=== PATIENT | female | born 1990 | race Caucasian/White ===

== ENCOUNTER 2024-09-05 12:42 | Emergency (ER) | payer OTHER, SELFPAY ==
[2024-09-05 12:49] VITALS: BP 156/98; PULSE 102; TEMP 36.4; O2SAT 99; BMI 35.4
--- NOTE | 2024-09-05 12:58 | ED_ITS ---
HPI HPI - General Adult General Chief complaint: Back Pain/Injury Stated complaint: KIDNEY PAIN Time Seen by Provider: 09/05/24 12:46 History of Present Illness HPI narrative: Pt developed left lower back pain around 08/24/24 and the pain has persisted since onset. She describes the pain as wrapping around to the lateral left hip and thigh and into the left lower abdomen. Long history of sciatica , which can sometimes feel like this, she told me, but this feels different . She denied any urinary changes. no GI symptoms. No fever or chills. The mother interrupted to tell me several other family members had UTIs in the last month . She is currently on her menstrual period and told me there is no way when I asked about . Related Data Previous Rx's ?Medication ?Instructions ?Recorded ciprofloxacin HCl 500 mg tablet 500 mg PO BID #10 tabs 09/05/24 (Cipro) ketorolac 10 mg tablet 10 mg PO Q8H 5 days #15 tabs 09/05/24 Allergies Allergy/AdvReac Type Severity Reaction Status Date / Time Penicillins Allergy Severe Hives Verified 09/05/24 12:48 Opioid HPI Opioid Management Most Recent Opioid Data: Last Pain Scale 4 09/05/24 13:11 09/05/24 Last MAR Pain Assessment 09/05/24 13:04 PFSH PFSH Social History Little interest or pleasure in doing things: not at all Feeling down, depressed, or hopeless: not at all Exam Narrative Exam Narrative: Nurses notes and vital signs reviewed and patient is not hypoxic. afebrile General: Well-appearing and in no apparent distress. Skin: Warm, dry, no pallor noted. No rash to back or abdomen. Eye: Pupils are equal, round and EOMI. No scleral icterus. Cardiovascular: Regular Rate and Rhythm without murmur, gallop or rub. Respiratory: No accessory muscle use or respiratory distress. Lungs are clear to auscultation, no wheezing, rales or rhonchi Chest Wall: no tenderness Back: Left flank soft tissue tenderness. No midline thoracic or lumbar or sacral vertebral tenderness. No CVA tenderness Musculoskeletal: normal ROM, no calf or popliteal tenderness, no lower extremity edema/swelling GI: Abdomen is soft, non-distended. Normal bowel sounds. No solid or pulsatile masses appreciated. No tenderness to palpation. No rebound, guarding, or rigidity noted. Neurological: A&O x4. No cranial nerve dysfunction observed. No truncal ataxia. Moves all extremities. Sensation intact. Psychiatric: Cooperative and interactive. Normal mood and affect. Constitutional Vital Signs, click to edit/add: Last Vital Signs Temp 97.5 F L 09/05/24 12:49 Pulse 102 H 09/05/24 12:49 Resp 16 09/05/24 12:49 BP 156/98 H 09/05/24 12:49 Pulse Ox 99 09/05/24 12:49 O2 Del Method Room Air 09/05/24 12:49 Course Vital Signs Vital signs: Vital Signs Temperature 97.5 F L 09/05/24 12:49 Pulse Rate 102 H 09/05/24 12:49 Respiratory Rate 16 09/05/24 12:49 Blood Pressure 156/98 H 09/05/24 12:49 Pulse Oximetry 99 09/05/24 12:49 Oxygen Delivery Method Room Air 09/05/24 12:49 Temperature 97.5 F L 09/05/24 12:49 Pulse Rate 102 H 09/05/24 12:49 Respiratory Rate 16 09/05/24 12:49 Blood Pressure 156/98 H 09/05/24 12:49 Pulse Oximetry 99 09/05/24 12:49 Oxygen Delivery Method Room Air 09/05/24 12:49 Medical Decision Making MDM Narrative Medical decision making narrative: Urine obtained and sent for testing. Pt received IM Solumedrol and IM Toradol while we awaited urine result. Urinalysis consistent with acute UTI. Pt already feeling better after ED treatment - she declined offer for CT a/p as risk outweighed benefit. Pt prescribed cipro to be started tonight and toradol to be started tomorrow as needed for pain. reasons for ED return discussed including inability to urinate and worsening pain or development of fever despite being on the antibiotics. Lab Data Lab results reviewed: Yes I reviewed the patient's lab results Labs: Lab Results 09/05/24 Range/Units 13:03 Urine Color Lt. yellow (YELLOW) Urine Clarity Clear (CLEAR) Urine pH 6.0 (5.0-9.0) Ur Specific [place] >=1.030 A (1.005-1.025) Urine Protein Negative (NEG/TRACE) mg/dL Urine Glucose (UA) Negative (NEGATIVE) mg/dL Urine Ketones Negative (NEGATIVE) mg/dL Urine Occult Blood Large A (NEGATIVE) Urine Nitrite Positive A (NEGATIVE) Urine Bilirubin Negative (NEGATIVE) Urine Urobilinogen 0.2 (0.2-1.0) EU/dL Ur Leukocyte Esterase Small A (NEGATIVE) Urine RBC 5-10 A (0-2) #/HPF Urine WBC 10-20 A (NONE SEEN) #/HPF Ur Squamous Epith Cells Few A (NONE/RARE) #/LPF Urine Crystals None seen (None Seen) #/HPF Urine Bacteria Moderate A (NONE SEEN) #/HPF Urine Casts None seen (NONE SEEN) #/LPF Urine Mucus None seen (NONE SEEN) Ur Culture Indicated? Yes Discharge Plan Discharge Chief Complaint: Back Pain/Injury Clinical Impression: UTI (urinary tract infection), Low back pain Patient Disposition: Home, Self-Care Time of Disposition Decision: 13:55 Prescriptions / Home Meds: New ciprofloxacin HCl [Cipro] 500 mg tablet 500 mg PO BID Qty: 10 0RF ketorolac 10 mg tablet 10 mg PO Q8H 5 Days Qty: 15 0RF Print Language: Spanish Instructions: Urinary Tract Infection in Women (ED), Acute Low Back Pain (ED) Referrals: Physician,Non-Staff, MD [Primary Care Provider] - 1 week
[2024-09-05] MEDS: KETOROLAC TROMETHAMINE 60 MG/2 ML VIAL IM (13:04)
[2024-09-05] MEDS: METHYLPREDNISOLONE SOD SUCC PF 125 MG/2 ML VIAL IM (13:04)
[2024-09-05 13:20] LABS: Bilirubin Urine NEGATIVE (NEGATIVE); Blood Urine LARGE (NEGATIVE); Clarity Urine CLEAR (CLEAR); Color Urine LT. YELLOW (YELLOW); Glucose Urine UA NEGATIVE (NEGATIVE); Ketones Urine NEGATIVE (NEGATIVE); Leukocyte Esterase Urine SMALL (NEGATIVE); Nitrite Urine POSITIVE (NEGATIVE); Protein Urine NEGATIVE (NEG/TRACE); Specific Gravity Urine >=1.030 (1.005-1.025); Urobilinogen Urine 0.2 EU/dL (0.2-1.0)
[2024-09-05 13:21] LABS: Urine Microscopic Indicated YES
[2024-09-05 13:29] LABS: Bacteria Urine MODERATE #/HPF (NONE SEEN); Mucus Urine NONE SEEN (NONE SEEN); Squamous Epithelial Cell Urine FEW #/LPF (NONE/RARE)
[2024-09-05 13:30] LABS: Cast Seen? NONE SEEN #/LPF (NONE SEEN); Crystals Seen? None Seen #/HPF (None Seen); Urine Culture Indicated YES
[2024-09-08 08:26] LABS: BOX Test Reference Lab FIRELANDS
--- NOTE | 2024-09-10 09:59 | PC.NURSE ---
Urine culture completed and reviewed by Ashanti TABARES. patient already placed on cipro and no change in treatment needed.
== END 2024-09-05 14:37 | disposition home or self-care (01) ==
PROVIDERS: Emergency Provider Emergency Medicine
DX: N39.0 Urinary tract infection, site not specified (principal); M54.50 Low back pain, unspecified
CPT/HCPCS: 36415; 81001; 87086; 87150; 87186; 96372; 99284; J1885; J2919

== ENCOUNTER 2025-04-21 14:02 | Outpatient (OUT) | payer OTHER, SELFPAY ==
--- NOTE | 2025-04-21 14:00 | CA_ITS ---
Patient Name: JUAN MIGUEL DAWKINS MR#: [id number] : 1990 Exam Date: 04/21/2025 Ordering Doctor: DR. BRE STUART M.D. ECHOCARDIOGRAM REPORT PROCEDURE: CA ECHO DOPPLER COMPLETE INDICATIONS: Dizziness, near syncope, dyspnea on exertion COMPARISON: None. DESCRIPTION: COMPLETE ECHOCARDIOGRAM Real-time transthoracic echocardiography with 2D, M-mode, spectral and color flow Doppler performed. QUALITY: Technical quality was good. LEFT VENTRICLE: Normal chamber size. Normal left ventricular wall thickness. Global left ventricular systolic function is normal. LV EF: Estimated left ventricular ejection fraction is 60-65%. DIASTOLIC: Normal diastolic function. ATRIAL SEPTUM: LEFT ATRIUM: Normal chamber size. RIGHT ATRIUM: Normal chamber size. RIGHT VENTRICLE: Normal chamber size. Normal right ventricular systolic function. TRICUSPID VALVE: Normal mobility and thickness. No stenosis with trivial regurgitation. No evidence of pulmonary hypertension. Unable to calculate RVSP due to lack of measurable regurgitation. MITRAL VALVE: Normal mobility and thickness. No evidence of mitral valve stenosis. There is no mitral annular calcification. No mitral regurgitation. AORTIC VALVE: Normal trileaflet appearance. No visible sclerosis. Normal leaflet mobility. No evidence of aortic valve stenosis. No aortic regurgitation. AORTIC ROOT: Normal diameter and appearance, measuring 2.8 cm. The ascending aorta is normal in size measuring 2.6 cm. PULMONIC VALVE: Normal thickness and mobility. No stenosis. Trivial regurgitation. PERICARDIUM: No evidence of pericardial effusion. IVC: Collapses with inspiration. Normal size. PLEURA: CONCLUSION: 1. Normal ventricular size and systolic function. Estimated LVEF is 60-65%. 2. Normal diastolic function. 3. No significant valvular dysfunction. 4. Unable to assess right-sided pressures due to lack of measurable tricuspid regurgitation. Adult Echocardiography Procedure Report Left Ventricle LVEDD (3.7 - 5.6 cm): 4.82 cm LVESD (2.2 - 4.0 cm): 3.04 cm LVIVS thickness (0.6 - 1.2 cm): 0.92 cm LVPW thickness (0.5 - 1.0 cm): 0.88 cm e': 0.15 m/s E - e': 3.59 LVOT Max Gradient: 3.51 mm[Hg] LVOT Area (cm2): 0.94 m/s Peak Velocity (LVOT): 0.94 m/s Mean Velocity (LVOT): 0.67 m/s LVOT Diameter 2.21 cm Left Ventricular Ejection Fraction: 60-65 % Left Atrium LA Volume Index (2D A2C): 25.16 ml/m2 Left Atrium Systolic Dimension: 3.83 cm Mitral Valve MV E to A Ratio: 1.21 Mitral Valve A-Wave Peak Velocity: 0.45 m/s Mitral Valve E-Wave Peak Velocity: 0.55 m/s Right Ventricle RV Internal Diastolic Dimension: 3.62 cm Aorta AO Root Diam: 2.80 cm Ascending Ao Diam: 2.55 cm Aortic Valve AoV Area (Peak Bear): 2.89 cm2, 2.89 cm2 AoV Area (VTI): 2.95 cm2, 2.95 cm2 Peak Velocity(Antegrade Flow): 1.24 m/s Peak Gradient(Antegrade Flow): 6.20 mm[Hg] Mean Velocity(Antegrade Flow): 0.85 m/s Mean Gradient(Antegrade Flow): 3.34 mm[Hg] Velocity Time Integral: 23.63 cm Tricuspid Valve Pulmonic Valve Mean Gradient: 2.16 mm[Hg], 2.02 mm[Hg] Mean Velocity: 0.68 m/s, 0.65 m/s Peak Velocity: 0.91 m/s Peak Gradient: 3.46 mm[Hg], 3.20 mm[Hg] Right Atrium Right Atrium Systolic Pressure: 69.08 ml, 69.08 ml Dictated by: Murali Boyd M.D. on 04/21/2025 at 18:09 Approved by: Murali Boyd M.D. on 04/21/2025 at 18:12
--- OUTSIDE RECORDS SUMMARY | 2025-04-21 14:12 | XMS_ITS | CCD ---
Author Organization [facility] Care Team Providers Care Cash Person Name Role Phone Anna Anthony Primary Care Physician Ana Tobin Attending Unavailable Ana Tobin Admitting Unavailable Roger Davis MD Attending Provider Roger Davis Attending Unavailable Roger Davis Admitting Unavailable Ana Tobin Referring Unavailable Ana Tobin Attending Unavailable Ana Tobin Admitting Unavailable BRE STUART Attending Unavailable Allergies Allergy Classification Reported Allergen(s) Allergy Type Date of Onset Reaction(s) Facility (1 source) Penicillins; Translations: [PENICILLINS] Propensity to adverse reactions to drug (disorder) [facility] Repository Problems Problem Classification Problem Date Documented Da te Episodic/Chronic Cardiac dysrhythmias (2 sources) Palpitations; Translations: [Palpitations] Onset: 03-31-2025 Episodic Conditions associated with dizziness or vertigo (2 sources) Dizziness and giddiness; Translations: [Dizziness and giddiness] Onset: 03-31-2025 Episodic Other ear and sense organ disorders (2 sources) Tinnitus, bilateral; Translations: [Tinnitus, bilateral] Onset: 03-31-2025 Episodic Other lower respiratory disease (2 sources) Other forms of dyspnea; Translations: [Other forms of dyspnea] Onset: 03-31-2025 Episodic Syncope (2 sources) Syncope and collapse; Translations: [Syncope and collapse] Onset: 03-31-2025 Episodic Results Test Name Value Interpretation Reference Range Facil ity 36on 04-19-2025 36 Regarding serious report on event monitor on 04/03/2025: MD Chuyita Almanza MA Can you please check with the patient if she recalls that what she was doing at that time and if she had symptoms. Thank you Spoke with patient. She said she thinks she was either walking into the library at that time, or playing a board game at the library. Currently has 11 more days left to wear event monitor. Normal [facility] Office Visiton 03-31-2025 Follow-up visit [id number] Juan Miguel Webber 1990 F Date Provider Department Center 03/31/2025 BRE [facility] Family History Problem Relation Age of Onset Thyroid disease Mother Heart disease Mother Obesity Mother Hyperlipidemia Mother Other Father Family Status - Relation Status Age at Mother Alive Father Unknown Level of Service:89799 [facility] OFFICE/OUTPATIENT NEW MODERATE MDM 45 MINUTES Reason for Visit and Comments: Hypertension [894049] New Patient [632] Normal [facility] MA Mamm Diag w/CAD if perf a nd 3D Bilon 03-10-2025 MA Mamm Diag w/CAD if perf and 3D Justin Exam Date/Time: 03/10/2025 13:31 EDT Reason for Exam: N64.9 Disorder of breast, unspecified Report IMPRESSION: BIRADS 1 NEGATIVE, NORMAL INTERVAL FOLLOW-UP.NO FOLLOWUP NEEDED. FOLLOW BASED ON AGE CRITERIA OR CLINICAL FINDINGS IS RECOMMENDED. CLINICAL HISTORY: N64.9 Disorder of breast, unspecified. COMPARISON: None. COMMENT: Tomosynthesis views of both breasts were obtained. There are scattered areas of fibroglandular density. A marker was placed on the skin surface of the lateral right breast to indicate where the patient feels a lump. No mammographic abnormality is identified in proximity to the skin marker. No dominant breast mass nor neoplastic calcifications are identified in either breast. This is a baseline exam. The examination was reviewed with Computer Aided Detection. An ultrasound was obtained at all clock face positions and in the central/ retroareolar region of the right breast. No mass, no cyst, nor suspicious lesion is noted in the right breast. No ultrasound abnormality is noted at 9:00 where the patient feels a lump. Breast Density: No Mammography is very important to your health. The current [employer] and National [employer] Network guidelines recommends annual mammography beginning at age 40. This facility utilizes a reminder system to ensure all patients receive reminder notifications at the appropriate time based on the recommendations of this exam. Board Certified Radiologists. Accredited by the ACR and FDA. Ordering Provider: Ana Tobin FINAL REPORT Dictated: 03/10/2025 2:35 pm Lionel Hunter M.D. Signed (Electronic Signature): 03/10/2025 2:35 pm Signed by: Lionel Hunter M.D. Transcribed by: ANAHY Technologist: SOLOMON Assessment: BI-RADS Category 1-Negative Recommendation: Normal interval follow-up Normal [facility] US Breast Unilateral Rt Comp leteon 03-10-2025 US Breast Unilateral Rt Complete Exam Date/Time: 03/10/2025 13:59 EDT Reason for Exam: N64.9 Disorder of breast, unspecified Report PLEASE REFER TO THE MAMMOGRAM REPORT. Ordering Provider: Ana Tobin FINAL REPORT Dictated: 03/10/2025 2:35 pm Lionel Hunter M.D. Signed (Electronic Signature): 03/10/2025 2:35 pm Signed by: Lionel Hunter M.D. Transcribed by: ANAHY Technologist: CHRISTIANO Normal [facility] Urine Cultureon 09-05-2024 Bacteria identified Cx Nom (U) ORGANISM: Escherichia coli (O:ESCCOL) [place] Count >100,000 Aerobic DELMAR Charge ([id number]) --- SUSCEPTIBILITY -- ORGANISM: O:ESCCOL ANTIBIOTIC INTERPRETATION DELMAR Amikacin S <16 Amoxacillin/K Clavulanate S <8 Ampicillin R >16 Ampicillin/Sulbactam S <4 Aztreonam S <4 Cefazolin S <2 Cefepime S <2 Ceftazidime S <1 Ceftazidime/Avibactam S <4 Ceftolozane/Tazobactam S <2 Ceftriaxone S <1 Cefuroxime S <4 Ciprofloxacin S <0.25 Ertapenem S <0.5 Gentamicin S <2 Levofloxacin S <0.5 Meropenem S <1 Meropenem/Vaborbactam S <2 Nitrofurantoin S <32 Piperacillin/Tazobacta m S <8 Tetracycline S <4 Tigecycline S <2 Tobramycin S <2 Trimethoprim/Sulfameth oxazole S <0.5 S = SUSCEPTIBLE I = INTERMEDIATE R = RESISTANT BLANK = DATA NOT AVAILABLE, OR DRUG NOT ADVISABLE OR TESTED R* = RESISTANCE DUE TO EXTENDED SPECTRUM BETA-LACTAMASES ESBL = EXTENDED SPECTRUM BETA-LACTAMASE TFG = THYMIDINE-DEPENDENT STRAIN CNOSUELO = BETA-LACTAMASE POSITIVE IB = INDUCIBLE BETA-LACTAMASE. APPEARS IN PLACE OF 'S' WITH SPECIES KNOWN TO POSSESS INDUCIBLE BETA-LACTAMASES. POTENTIALLY THEY MAY BECOME RESISTANT TO ALL B-LACTAM DRUGS. PERFORMED BY: [place] [address] PATHOLOGIST CONSUMER RECRUITER GIOVANNI CONTRERAS M.D. Normal [facility] Comment on above: Performed By: #### C UU #### [place] [id number] [facility] Physician Orderon 02-20-2024 Physician Order [id number] Normal [facility] Encounters Encounter Date Encounter Type Care Provider Facility Start: 03-31-2025 End: 03-31-2025 ambulatory [facility] Start: 03-10-2025 End: 03-10-2025 ambulatory Ana Tobin [place] [place]: 09-05-2024 End: 09-05-2024 ambulatory Roger Davis [facility] Work Phone: Start: 09-05-2024 End: 09-05-2024 Departed Referred Roger Davis MD Work Phone: [facility] Start: 02-20-2024 End: 02-20-2024 ambulatory Ana Tobin [place] Start: 02-20-2024 End: 02-20-2024 Lab Drop off Ana Tobin [facility] Plan of Treatment Date Care Activity Detail Author Start: 09-05-2024 Bacteria identified in Urine by Culture Urine Culture [facility] Start: 09-05-[address] [facility] Payers Date Payer Category Payer Self-pay [id number] 2021 Unknown [id number] 1990 Unknown [id number] 1990 Unknown [id number] Unknown [id number] Social History Date Type Detail Facility Tobacco smoking status No Smokin g Status Entered [facility] Sex Assigned At Female [facility] Tobacco smoking stat [facility] Unknown if ever smoked [facility] Work Phone: Start: 09-06-2024 Sex Female (finding) [facility] Start: 1990 Sex Assigned At Female F [facility] Progress note 03-31-2025 Note Date & Type Note Facility 03-31-2025 Note [facility] Note Reason for cardiology consult: Dizziness, palpitations, shortness of breath on exertion Chief Complaint: Dizziness and palpitation HPI: Juan Miguel Webber is a 34 y.o. female with history of ADHD, anxiety depression, palpitation and tachycardia, hypertension, and obesity Patient states that she had dizziness episodes for a long time however it is worse over the last couple years. She states that the dizziness happens when she gets up too fast or for examples when she rushes from outside into her house or into a grocery store when she feels pressure on the top of her head with kolb vision and lightheadedness and she feels that things are spinning. She states that she never fainted. She feels that she has to sit down or hold to something and if she hold to something she feels better even if she is still standing. Also she feels at the time that her heart is pounding. She was told that her heart rate was fast and blood pressure elevated therefore she was started on small dose of beta-mihai Toprol-XL 25 mg daily which did not change the above symptoms and actually it makes her feel dizziness she describes it as floating even if she is sitting down. She told me that today when the nurse did her orthostatic vitals she did not feel any symptoms till after she is done when she was going to sit down when she felt slightly light headed. She reports that she always attributed the symptoms to anxiety. She reports also that she does not do any exercises except for yoga because of those symptoms. She reports that she has bad tinnitus for a long time and she feels pressures in her ears. She never seen ENT. She feels that her heart is racing at times that she has hard heartbeats. She reports that she has kind of fast heart rate all of her life. She reports also exertional dyspnea. She reports occasional stabbing chest pain at rest for few seconds but no chest pain with exertion. She denies orthopnea or paroxysmal nocturnal dyspnea or legs edema. She reports snoring and being tired and exhausted during the daytime. She never been told that she stops breathing during the night and she never been evaluated for sleep apnea She has history of anxiety and also ADHD but she has been on medication only for 1 and half year. Her symptoms are much older. She reports drinking 2 Cokes a day and rarely she drinks energy drink, both caffeine and energy drinks makes her sleepy. And she drinks about 3 bottles of 20 ounce water a day. She denies any alcohol or illicit drugs. Cardiology ROS: GENERAL: Denies fever, chills, night sweats, weight loss. HEENT: Denies changes in vision, photophobia, changes in hearing, epistaxis, oral bleeding. CARDIOVASCULAR: As described above in the history GI: Denies abdominal pain, nausea/vomiting, heartburn, melena/hematochezia. RENAL: Denies dysuria, hematuria, flank pain. MSK: Denies muscle weakness/pain, arthralgias/joint pain. NEUROLOGIC: Denies LOC, weakness, numbness, headaches. SKIN: Denies abnormal rashes or bleeding. PSYCH: Denies significant anxiety, depression, sleep disturbances. Past Medical History She has a past medical history of ADHD, Anxiety, Depression, Eczema, Palpitation, and Tachycardia. Surgical History She has no past surgical history on file. Social History She reports that she has never smoked. She has never used smokeless tobacco. She reports that she does not currently use alcohol. She reports that she does not use drugs. Family History Family History[1] Allergies Penicillins Medications Current Medications[2] Last Recorded Vitals Visit Vitals BP 140/90 (BP Location: Left arm, Patient Position: Lying) Pulse 85 Ht 1.727 m (5' 8 ) Wt 114 kg (252 lb) SpO2 97% BMI 38.32 kg/m??? Smoking Status Never BSA 2.34 m??? Physical Examination: GENERAL: alert and oriented x3, well developed, in no acute distress. HEAD: atraumatic, normocephalic. EYES: LINK, EOMI. NECK: trachea midline, no JVD present, no carotid bruits present. CARDIAC: S1, S2 present. RRR. No murmur, rubs, or gallops. RESPIRATORY: CTAB, no increased effort of breathing, no rales, rhonchi, or wheezing. ABDOMEN: soft, nontender, nondistended. EXTREMITIES: no lower extremity edema, peripheral pulses are 2+ bilaterally. No rash/skin discoloration present. NEURO: strength/sensation equal and symmetric in bilateral upper and lower extremities. PSYCH: appropriate mood, affect, and judgement. Labs: 02/16/2025 Cholesterol 197, HDL 50, triglyceride 138, LDL 121, Glucose 107, BUN 10, creatinine 0.83, GFR 94, sodium 140, potassium 4.2, calcium 9.1 Total protein 6.5, albumin 4.3, total bilirubin 0.4, alk phos 63, AST 25, ALT 27 White blood count 7.3, hemoglobin 13.4, hematocrit 42, platelets 223 TSH 0.98 Last Images: EKG today 03/31/2025 showed normal sinus rhythm, heart rate 84 bpm, normal EKG Assessment and Pl (more content not included)... [facility] Evaluation + Plan note Note Date & Type Note Facility Evaluation + Plan note No data available for this section [facility] Evaluation note Note Date & Type Note Facility Evaluation note No assessment information availa [facility] Work Phone: Hospital Discharge instructions Note Date & Type Note Facility Hospital Discharge instructions No data available for this section [facility] Progress note Note Date & Type Note Facility Progress note No data available for this section [facility] Summary Purpose Family History No Family History Records Found Advance Directives No Advanced Directives Records FoundNo Advanced Directives Records FoundNo Advanced Directives Records FoundNo Advanced Directives Records Found Additional Source Comments Patient Care team informatio n (unrecognized section and content) Team Status: Inactive Member Role Status Dates Roger Davis MD Attending Provider Active Sta rt: September 05, 2024 End: September 05, 2024 INFORMATION SOURCE (unrecogn ized section and content) DATE CREATED AUTHOR 02/22/2024 [facility] DATE CREATED AUTHOR AUTHOR'S ORGANIZ ATION 09/12/2024 [facility] DATE CREATED AUTHOR AUTHOR'S ORGANIZ ATION 03/22/2025 [facility] DATE CREATED AUTHOR AUTHOR'S ORGANIZ ATION 04/20/2025 [facility] Goals (unrecognized section and content) Goals may be documented in a n alternate section FOR RECORDS PERTAINING TO PATIENTS WHO ARE OR HAVE BEEN ENROLLED IN A CHEMICAL DEPENDENCY/SUBSTANCEABUSE PROGRAM, SOME INFORMATION MAY BE OMITTED. This clinical summary was aggregated from multiple sources. Caution should be exercised in using it in the provision of clinical care. This summary normalizes information from multiple sources, and as a consequence, information in this document may materially change the coding, format and clinical context of patient data. In addition, data may be omitted in some cases. CLINICAL DECISIONS SHOULD BE BASED ON THE PRIMARY CLINICAL RECORDS. [facility] [email or web address] [facility]. provides no warranty or guarantee of the accuracy or completeness of information in this document.
== END 2025-04-21 14:03 | disposition home or self-care (01) ==
LOC: CARD 14:02
PROVIDERS: Visit Provider Internal Medicine Cardiovascular Disease
DX: R42 Dizziness and giddiness (principal); R55 Syncope and collapse; R06.09 Other forms of dyspnea
CPT/HCPCS: 93306

== ENCOUNTER 2025-07-06 15:59 | Outpatient (OUT) | payer OTHER, SELFPAY ==
--- OUTSIDE RECORDS SUMMARY | 2025-06-23 13:40 | XMS_ITS | Encounter Summary ---
Author Organization [facility] Address [address] [facility] [place] [address] Care Team Providers Care Dehydrogenation Converter Helper Name Role Phone Anna Navarro MD Unavailable [phone] Reason for Referral * Imaging (Routine) - AuthorizedSpecialtyDiagnoses / ProceduresReferred By ContactReferred To ContactRadiology Diagnoses Pharyngoesophageal dysphagia Procedures FL esophagus barium swallow Thu Whalen MD [address] [facility] [address] [place] [address] Phone: tel: fax: [place] [facility] [address] [place] [address] Phone: tel: fax: Referral IDStatusReasonStart DateExpiration DateVisits RequestedVisits [id number] Perform Procedure / Reason for Visit * ReasonCommentsTinnitusAudio 06/15/25 Encounter Details DateTypeDepartmentCare Team (Latest Contact Info)Phcgrorobsl30/22/2025 2:40 PM EDTOffice Visit [facility] [address] [place] [address] [place] [address] Thu Whalen MD [address] [facility] [address] [place] [address] Dizziness and giddiness (Primary Dx); Pharyngoesophageal dysphagia Social History Tobacco UseTypesPacks/DayYears UsedDateSmoking Tobacco: NeverSmokeless Tobacco: Never Tobacco Cessation:Counseling Given: Not Answered CommentsUnknownSex and Gender InformationValueDate RecordedSex Assigned at BirthNot on fileLegal NhnVsotpa23/01/2023 8:35 PM EDTGender IdentityNot on fileSexual OrientationNot on filedocumented as of this encounter Last Filed Vital Signs Vital SignReadingTime TakenCommentsBlood Nmfbvsqq63/5810 2:38 PM EDT Ewjul350706/23/2025 2:38 PM EDTTemperature--Respiratory Rate--Oxygen Saturation-- Inhaled Oxygen Concentration--Wuitdw898 kg (265 lb)06/23/2025 2:38 PM EDTHeight 172.7 [...] appears well-developed, well-nourished and well-groomed, Constitutional comments: [place]-Hallpike normal Head and Face Appearance: head appears [...] c/w orthostasis, but I would think the administrative services coordinator who referred her would have ruled that [...] Plan of Treatment DateTypeDepartmentCare Team (Latest Contact Info)Izajiosxnha45/03/2025 2:20 PM ESTOffice Visit [facility] [address] [facility] [address] [place] [address] Thu Whalen MD [address] [facility] [address] [place] [address] NameTypePriorityAssociated DiagnosesOrder ScheduleFL esophagus barium swallow ImagingRoutine Pharyngoesophageal dysphagia Expected: 06/28/2025, Expires: 06/28/2026documented as of this encounter Visit Diagnoses Diagnosis Dizziness and giddiness- Primary Pharyngoesophageal dysphagia Dysphagia, pharyngoesophageal phase documented in this encounter Care Teams Team MemberRelationshipSpecialtyStart DateEnd Date Anna Navarro MD [address] [place], [place] [address], [place] [address] Referring PhysicianFamily Snblktak90/22/25documented as of this encounter
--- OUTSIDE RECORDS SUMMARY | 2025-07-06 15:00 | XMS_ITS | Encounter Summary ---
Author Organization [facility] Address [address] [facility] [place] [address] Care Team Providers Care Transfusion Aide Name Role Phone Unavailable Primary Care Provider Unavailabl e Reason for Referral * Genetic Testing (Routine) - Pending ReviewSpecialtyDiagnoses / Procedures Referred By ContactReferred To ContactLab Diagnoses Palpitations Procedures T4, free Josr Concepcion MD [address] [place] [address] Phone: tel: fax: Referral IDStatusReasonStart DateExpiration DateVisits RequestedVisits [id number]/ Reason for Visit * ReasonCommentsFollow-upPatient is here today for a follow up per Dr. Kruse request.Patient recently wore 30 day montior.Patient denies chest pain,Near syncopeSVTHypertensionHyperlipidemiaPalpitationsPalpation/racing heart has decreased since starting matoprololDizzinessDizziness/lightheaded happens frequently with standing/position changesFatigueTired all the time Encounter Details DateTypeDepartmentCare Team (Latest Contact Info)Jimvtwatqms21/04/2025 3:00 PM ESTOffice Visit [facility] [address] [place] [address] Josr Concepcion MD [address] [place] [address] Palpitations (Primary Dx) Social History Tobacco UseTypesPacks/DayYears UsedDateSmoking Tobacco: NeverSmokeless Tobacco: NeverAlcohol UseStandard Drinks/WeekCommentsNot Currently0 (1 standard drink = 0.6 oz pure alcohol)CommentsUnknownSex and Gender InformationValueDate RecordedSex Assigned at YmregYxcson24/30/2025 9:28 AM EDTLegal SexFemale 03/04/2025 11:19 AM EDTGender SvmborasSrbhok08/30/2025 9:28 AM EDTSexual OrientationHeterosexual or Tuiievof58/30/2025 9:28 AM EDTdocumented as of this encounter Last Filed Vital Signs Vital SignReadingTime TakenCommentsBlood Evcajpkj315/ 2:58 PM EST Ufpxv202607/06/2025 2:58 PM ESTTemperature--Respiratory Rate--Oxygen Wsgesmdrhq65% 07/06/2025 2:58 PM ESTInhaled Oxygen Concentration--Weight--Wjadik226.7 cm (5' 8 )07/06/2025 2:58 PM ESTBody Mass Index--documented in this encounter Functional Status * BPAnswerDate of MmvzbhgeejHdowyl664 2:58 PM Delmy Christianson MA * PulseAnswerDate of TzgcpqbmdjNudxhz9516/04/2025 2:58 PM Delmy Christianson MA * Patient PositionAnswerDate of FrlhohsqgoEbhnjbJqmeiuh99/04/2025 2:58 PM Delmy Peters MA * BPAnswerDate of PxspcgaugpBmogyb590 2:58 PM Delmy Christianson MA * PulseAnswerDate of DdnqwdntchCgptoi6959/04/2025 2:58 PM Delmy Christianson MA * AcP8XplshfXxsb of VkausakjbwNnzsnc8207/04/2025 2:58 PM Delmy Christianson MA * BP LocationAnswerDate of AssessmentAuthorRight arm07/06/2025 2:58 PM Delmy Peters MA * Patient PositionAnswerDate of CscbjesmsyCssowmWnjtttt93/04/2025 2:58 PM Delmy Peters MA documented as of this encounter Plan of Treatment NameTypePriorityAssociated DiagnosesOrder ScheduleTSHLabRoutine Palpitations Expected: 07/06/2025 (Approximate), Expires: 07/06/2026T4, freeLabRoutine Palpitations Expected: 07/06/2025 (Approximate), Expires: 07/06/20264996H8AuzHloftpf Palpitations Expected: 07/06/2025 (Approximate), Expires: 07/06/2026documented as of this encounter Visit Diagnoses Diagnosis Palpitations- Primary documented in this encounter
--- OUTSIDE RECORDS SUMMARY | 2025-07-06 16:04 | XMS_ITS | Encounter Summary ---
Author Organization [facility] Address [address] [place] [address] Care Team Providers Care Net Washer Name Role Phone Anna Navarro MD Unavailable [phone] Encounter Details DateTypeDepartmentCare Team (Latest Contact Info)Sleerdhdwbf88/22/2025amboo flowsheet [facility] [address] [facility] [address] [place] [address] Thu Whalen MD [address] [facility] [address] [place] [address] Social History Tobacco UseTypesPacks/DayYears UsedDateSmoking Tobacco: NeverSmokeless Tobacco: NeverCommentsUnknownSex and Gender InformationValueDate RecordedSex Assigned at BirthNot on fileLegal UaiTcjloj14/01/2023 8:35 PM EDTGender Identity Not on fileSexual OrientationNot on filedocumented as of this encounter Plan of Treatment DateTypeDepartmentCare Team (Latest Contact Info)Grfgfrhqeke83/03/2025 2:20 PM ESTOffice Visit [facility] [address] [facility] [address] [place] [address] Thu Whalen MD [address] [facility] [address] [place] [address] documented as of this encounter Visit Diagnoses Not on filedocumented in this encounter Care Teams Team MemberRelationshipSpecialtyStart DateEnd Date Anna Navarro MD [address] [facility] [place] [address] Referring PhysicianFamily Rszjljxa42/22/25documented as of this encounter
--- OUTSIDE RECORDS SUMMARY | 2025-07-06 16:04 | XMS_ITS | Patient Health Record ---
Author Organization [facility] Address [address] [place] [address] Care Team Providers Care Robot Programmer Name Role Phone Dr. Kenan Weston Primary Care Provider Reason For Referral No Information Plan Of Treatment No Information Insurance Providers Payer Name Payer Address Payer Phone Subscriber Number Group Number Insured Name Patient Relationship to Insured Coverage Start Date Coverage End Date zDENTAL NATH-termed [address] [place] [address] [id number] Alexsander DAWKINS - patient is the [id number] 2021[facility] after NATH-termed [address] [place] [id number] REYES - patient is the [id number] 2021
--- OUTSIDE RECORDS SUMMARY | 2025-07-06 16:04 | XMS_ITS | Clinical Summary ---
Author Organization [facility] Address [address] [place] [address] Care Team Providers Care Human Resources Office Manager Name Role Phone Anna Navarro MD Unavailable [phone] Allergies Active AllergyReactionsCriticalityNoted AmtqRkgjmlznXkduuodGinavgd11/18/2025 NgtyviijfPlkfb68/22/8551JajitatojjbNdanuvt79/30/2025 Medications MedicationSigDispense QuantityRefillsLast FilledStart DateEnd DateStatus amphetamine-dextroamphetamine XR (Adderall XR) 15 MG 24 hr capsule Take 15 mg by mouth DailyActive Blisovi 24 Fe 1-20 MG-MCG(24) tablet Take 1 tablet by mouth DailyActive metoprolol succinate XL (Toprol-XL) 25 MG 24 hr tablet Take 25 mg by mouth Daily03/16/2025tive cyclobenzaprine (Flexeril) 10 MG tablet TALE 1 TABLET BY MOUTH EVERY 8 HOURS NEEDED FOR MUSCLE SPASMActive Active Problems ProblemNoted DateDiagnosed DateBenign hypertensive heart disease without congestive heart mfckbln1706/03/2025SVT (supraventricular tachycardia)06/03/2025 Attention deficit hyperactivity disorder (ADHD)03/31/2025lass 2 severe obesity due to excess calories with serious comorbidity and body mass index (BMI) of38.0 to 38.9 in adult03/31/2025DOE (dyspnea on exertion)03/31/2025Near syncope 03/31/20251489Oxtxcyklmvzq50/30/2025Pure kcihgxxqmqnogtwywqfs23/30/2025Sleep apnea 03/31/2025Tinnitus of both ears03/31/20257458Ybitkgb83/30/2025 Encounters DateTypeDepartmentCare BeljBpbqejwmpch79/27/2025Telephone [facility] Otol[facility]ology [address] [place] [phone] Thu Whalen MD 06/23/2025 2:40 PM EDTOffice Visit [facility] [place] [facility] [address] [facility] [address] [place] [address] Thu Whalen MD Dizziness and giddiness (Primary Dx); Pharyngoesophageal yjkpmuzmb47/22/2025amboo flowsheet [facility] [place] [facility] [address] [facility] [address] [place] [address] Thu Whalen MD 06/23/20253219Mwppwo46/14/2025 2:45 PM EDTOffice Visit [facility] [address] [place] [phone] Lidia Luu, AUD Dizziness (Primary Dx)06/15/2025amboo flowsheet [facility] [address] [place] [phone] Lidia Luu, AUD from Last 3 Months Social History Tobacco UseTypesPacks/DayYears UsedDateSmoking Tobacco: NeverSmokeless Tobacco: Never Tobacco Cessation:Counseling Given: Not Answered CommentsUnknownSex and Gender InformationValueDate RecordedSex Assigned at BirthNot on fileLegal ErhMiqdzl33/01/2023 8:35 PM EDTGender IdentityNot on fileSexual OrientationNot on file Last Filed Vital Signs Vital SignReadingTime TakenCommentsBlood Ngjjtsjo88/5810 2:38 PM EDT Vmzuo186506/23/2025 2:38 PM EDTTemperature--Respiratory Rate--Oxygen Saturation-- Inhaled Oxygen Concentration--Qloqxs965 kg (265 lb)06/23/2025 2:38 PM EDTHeight 172.7 cm (5' 8 )06/23/2025 2:38 PM EDTBody Mass Index40.291 2:38 PM EDT Plan of Treatment DateTypeDepartmentCare Team (Latest Contact Info)Aqtfddbndrx86/03/2025 2:20 PM ESTOffice Visit [facility] [place] [facility] [address] [facility] [address] [place] [phone] Thu Whalen MD [address] [facility] [address] [place] [address] Health MaintenanceDue DateLast DoneCommentsMMR Vaccines (1 of 1 - Standard series)1989DTaP/Tdap/Td Vaccines (1 - Tdap)12/07/1995Varicella Vaccines (1 of 2 - 13+ 2-dose series)2001Hepatitis B Vaccines (1 of 3 - 19+ 3-dose series)12/07/2007Pap Smear2009HPV Vaccines (1 - 3-dose SCDM series) 12/07/2015Cervical Cancer Ratanpqjn73/06/2019HPV/Lhyycw7012/06/2018COVID-19 Vaccine ( season)/, 07/30/2021, 12/22/2020, Additional history existsInfluenza Vaccine (#1)05/03/2025HIB VaccinesAged OutNo longer eligible based on patient's age to complete this topicHepatitis A VaccinesAged OutNo longer eligible based on patient's age to complete this topic IPV VaccinesAged OutNo longer eligible based on patient's age to complete this topicMeningococcal B VaccineAged OutNo longer eligible based on patient's age to complete this topicMeningococcal VaccineAged OutNo longer eligible based on patient's age to complete this topicPneumococcal Vaccine: Pediatrics (0 to 5 Years) and At-Risk Patients (6 to 64 Years)Aged OutNo longer eligible based on patient's age to complete this topicRotavirus VaccinesAged OutNo longer eligible based on patient's age to complete this topic Procedures Procedure NamePriorityDate/TimeAssociated DiagnosisCommentsAUDITORY FUNCTION WZZNLWtsrgxa15/14/2025 3:41 PM EDT from Last 3 Months Results * Auditory function tests (06/15/2025 3:41 PM EDT) Narrative Luu, Lidia S, AUD - 06/15/2025 3:41 PM EDT Pure Tone Audiometry Audio indicated normal hearing sensitivity 250-8000 Hz, bilaterally. Hallpike: Yielded negative results in both positions tested. Authorizing ProviderResult TypeResult StatusAllgustabo Luu AUDAUDIOLOGY SERVICES ORDERABLESFinal Result from Last 3 Months Insurance Care Teams Team MemberRelationshipSpecialtyStart DateEnd Date Anna Navarro MD [address] [place] [phone] Referring PhysicianFamily Djdgrneh96/22/25
--- OUTSIDE RECORDS SUMMARY | 2025-07-06 16:04 | XMS_ITS | Encounter Summary ---
Author Organization [facility] Address [address] [place] [address] Care Team Providers Care Psychometrist Name Role Phone Anna Navarro MD Unavailable [phone] Encounter Details DateTypeDepartmentCare Team (Latest Contact Info)Kfgcvnvqvxf05/22/2025Travel Social History Tobacco UseTypesPacks/DayYears UsedDateSmoking Tobacco: NeverSmokeless Tobacco: NeverCommentsUnknownSex and Gender InformationValueDate RecordedSex Assigned at BirthNot on fileLegal OxzMccvpb92/01/2023 8:35 PM EDTGender Identity Not on fileSexual OrientationNot on filedocumented as of this encounter Plan of Treatment DateTypeDepartmentCare Team (Latest Contact Info)Qjzusmyjznd59/03/2025 2:20 PM ESTOffice Visit [facility] [place] [facility] [address] [place] [phone] Thu Whalen MD [address] [place] [address] documented as of this encounter Visit Diagnoses Not on filedocumented in this encounter Care Teams Team MemberRelationshipSpecialtyStart DateEnd Date Anna Navarro MD [address] [place] [phone] Referring PhysicianFamily Gvzfibrn25/22/25documented as of this encounter
--- OUTSIDE RECORDS SUMMARY | 2025-07-06 16:04 | XMS_ITS | Clinical Summary ---
Author Organization [facility] Address [address] [address] Care Team Providers Care Fleet Administrator Name Role Phone Unavailable Primary Care Provider Unavailabl e Allergies Active AllergyReactionsCriticalityNoted BazqFafgynzsNeagkwsBeezwmr26/18/2025 TlufsixwbPuwgf82/22/3446QrjbkdfaaguZjzbxou00/30/2025 Medications MedicationSigDispense QuantityRefillsLast FilledStart DateEnd DateStatus amphetamine-dextroamphetamine XR (Adderall XR) 15 mg 24 hr capsule Take 1 capsule by mouth in the morning.5Active Blisovi 24 Fe 1 mg-20 mcg (24)/75 mg (4) tablet Take 1 tablet by mouth in the morning.5Active cyclobenzaprine (Flexeril) 10 mg tablet Take 10 mg by mouth if needed.5Active metoprolol succinate XL (Toprol-XL) 50 mg 24 hr tablet Indications:Benign hypertensive heart disease without congestive heart failure Take 1 tablet (50 mg) by mouth in the morning. Do not crush or chew. 90 tablet 5005/27/2026ctive Active Problems ProblemNoted DateDiagnosed DateSVT (supraventricular tachycardia)06/03/2025 Benign hypertensive heart disease without congestive heart hktzpih9206/03/2025 Gggcpmi3003/31/2025Near wbqdqcr9303/31/20252554Gaboqsaeuvhn38/30/2025DOE (dyspnea on exertion)03/31/2025Pure vkxdghneroxhofimmhhm27/30/2025ttention deficit hyperactivity disorder (ADHD)03/31/2025lass 2 severe obesity due to excess calories with serious comorbidity and body mass index (BMI) of38.0 to 38.9 in adult03/31/2025Sleep apnea03/31/2025Tinnitus of both ears03/31/2025 Encounters DateTypeDepartmentCare YxfpDtazxtcspwg92/04/2025 3:00 PM ESTOffice Visit [facility] [address] [place] [facility] [phone] Josr Concepcion MD Palpitations (Primary Dx)05/30/2025Results Follow-Up [facility] [address] [place] [facility] [address] Teri Tavera MD Tilt table05/27/2025 3:00 PM EDTOffice Visit [facility] [address] [place] [facility] [address] Teri Tavera MD Palpitations (Primary Dx); SVT (supraventricular tachycardia); LY (dyspnea on exertion); Vertigo; Benign hypertensive heart disease without congestive heart failure; Pure hypercholesterolemia; Class 2 severe obesity due to excess calories with serious comorbidity and body mass index (BMI) of38.0 to 38.9 in adult ([facility]); Sleep apnea, unspecified type; Attention deficit hyperactivity disorder (ADHD), unspecified ADHD type05/20/2025 7:50 AM EDT - 05/20/2025 11:59 PM EDTHospital Encounter [facility] [address] [place] [address] Dizziness; Near syncope Discharge Disposition: Home or Self Care (01)05/20/20259939Npscpu92/08/2025Results Follow-Up [facility] [address] [place] [address] Teri Tavera MD Complete Echo (TTE) w/wo Imaging Agent, Strain, 3D, Bubble Study04/22/2025Orders Only [facility] [address] [place] [facility] [address] ProviderLuna MD 04/19/2025Telephone [facility] [address] [place] [address] Chuyita Kevin MA from Last 3 Months Family History Medical HistoryRelationNameCommentssubstance abuseFatherHeart diseaseMother HyperlipidemiaMotherObesityMotherThyroid diseaseMotherRelationNameStatusComments FatherUnknownMotherAlive Social History Tobacco UseTypesPacks/DayYears UsedDateSmoking Tobacco: NeverSmokeless Tobacco: Never Tobacco Cessation:Counseling Given: Not Answered Alcohol UseStandard Drinks/WeekCommentsNot Currently0 (1 standard drink = 0.6 oz pure alcohol)CommentsUnknownSex and Gender InformationValueDate Recorded Sex Assigned at GluxxRjexua09/30/2025 9:28 AM EDTLegal GoeNbtdbh37/03/2025 11:19 AM EDTGender UkcuoycoGwpzzr33/30/2025 9:28 AM EDTSexual OrientationHeterosexual or Wvhuuhtj31/30/2025 9:28 AM EDT Last Filed Vital Signs Vital SignReadingTime TakenCommentsBlood Oojyqufh071/8611 2:58 PM EST Dozvn2970 2:58 PM ESTTemperature--Respiratory Rate--Oxygen Ibxwggpbll90% 07/06/2025 2:58 PM ESTInhaled Oxygen Concentration--Exkxfu874 kg (254 lb) 05/27/2025 3:21 PM LFMYrydji047.7 cm (5' 8 )07/06/2025 2:58 PM ESTBody Mass Index38.62005/27/2025 3:21 PM EDT Plan of Treatment Health MaintenanceDue DateLast DoneCommentsDepression Gtpggstoi91/06/2001 Varicella Vaccines (1 of 2 - 13+ 2-dose series)2001Hepatitis B Vaccines (1 of 3 - 19+ 3-dose series)12/07/2007Pap Smear2009dult Klogfsl6212/06/2010HPV Vaccines (1 - 3-dose SCDM series)12/07/2015Cervical Cancer Nirjwdmjo52/06/2019 HPV/Luaicm5212/06/2018COVID-19 Vaccine ( season)509/, 06/08/2023, 06/30/2022, Additional history existsInfluenza Vaccine (#1) 05/03/2025Zoster Vaccines (1 of 2)2038HIB VaccinesAged OutNo longer eligible based on patient's age to complete this topicIPV VaccinesAged OutNo longer eligible based on patient's age to complete this topicMeningococcal B VaccineAged OutNo longer eligible based on patient's age to complete this topic Meningococcal VaccineAged OutNo longer eligible based on patient's age to complete this topicPneumococcal Vaccine: Pediatrics (0 to 5 Years) and At-Risk Patients (6 to 64 Years)Aged OutNo longer eligible based on patient's age to complete this topicRotavirus VaccinesAged OutNo longer eligible based on patient's age to complete this topic Procedures Procedure NamePriorityDate/TimeAssociated DiagnosisCommentsTILT TABLERoutine 05/20/2025 9:03 AM EDT Dizziness Near syncope COMPLETE TRANSTHORACIC ECHO (TTE) W/WO IMAGING AGENT, STRAIN, 3D, BUBBLE STUDY Cynsshw8604/21/2025 8:46 AM EDT from Last 3 Months Results * Tilt table (05/20/2025 9:03 AM EDT)Anatomical RegionLateralityModalityOther Specimen (Source)Anatomical Location / LateralityCollection Method / Volume Collection TimeReceived Time Impressions 05/21/2025 12:48 PM EDT Negative study for Syncope RECOMMENDED FOLLOW UP: Call Primary Care Physician to schedule an appointment Narrative 05/21/2025 12:48 PM EDT A Tilt Table test was performed on 05/21/25 at [facility] METHOD: ??The test was explained to Suki Webber, and the information sheet was signed. ECG monitoring was initiated and a blood pressure cuff was applied to the upper arm. An IV line was placed. AT BASELINE, ??Had a supine blood pressure of 143/84 MmHg, a heart rate of 79 and Normal Sinus rhythm. Symptoms at baseline: ??LLE cramp. THE PATIENT WAS TILTED to 70 degree head upright position for 20 minutes. Pt had a maximum blood pressure of 174/93 mmHg, a heart rate of 98 bpm and Normal Sinus rhythm at minute 10. Pt had a minimum blood pressure of 137/101 mmHg, a heart rate of 98 bpm and Normal Sinus rhythm at minute 12. Symptoms during initial Tilt: mild dizziness, sob, BLE tired and ache. THE TEST WAS COMPLETED and the patient was returned to supine position. Pt had a blood pressure of 171/95 mmHg, a heart rate of 93 bpm, and Normal Sinus rhythm. Symptoms Post Test: asymptomatic. FINAL Authorizing ProviderResult TypeResult StatusSan[facility] CARDIAC SERVICES PROCEDURESFinal Result * Complete Echo (TTE) w/wo Imaging Agent, Strain, 3D, Bubble Study (04/21/2025 8:46 AM EDT)Anatomical RegionLateralityModalityUltrasound Narrative Authorizing ProviderResult TypeResult StatusHistorical Provider [facility] ECHO PROCEDURESFinal Result from Last 3 Months Insurance
--- OUTSIDE RECORDS SUMMARY | 2025-07-06 16:04 | XMS_ITS | Encounter Summary ---
Author Organization [facility] Address [address] [place] [address] Care Team Providers Care Prosthetist Name Role Phone Anna Navarro MD Unavailable [phone] Encounter Details DateTypeDepartmentCare Team (Latest Contact Info)Jqmhqvosnpc30/27/2025[facility]phone [facility] [address] [place] [address] Thu Whalen MD [address] [facility] [address] [place] [address] Social History Tobacco UseTypesPacks/DayYears UsedDateSmoking Tobacco: NeverSmokeless Tobacco: NeverCommentsUnknownSex and Gender InformationValueDate RecordedSex Assigned at BirthNot on fileLegal AdmKicotv81/01/2023 8:35 PM EDTGender Identity Not on fileSexual OrientationNot on filedocumented as of this encounter Miscellaneous Notes * Telephone Encounter - Maricel Maldonado - 06/29/2025 11:59 AM EDT VNG order created, faxed to [facility] at [phone]. Called patient and informed her they will be calling her to schedule, if she does not hear from them within a week to call us. She has follow up scheduled for 08/04/25. * Telephone Encounter - Thu Whalen MD - 06/29/2025 10:47 AM EDT Send referral to [facility] main [facility]am for a VNG and notify pt * Telephone Encounter - Maricel Maldonado - 06/29/2025 9:57 AM EDT Called [facility] at [phone] they do VNG and take [employer] Medicaid insurance.They do not do posturography there. * Telephone Encounter - Thu Whalen MD - 06/28/2025 8:44 AM EDT Pt could not go to [facility] for VNG and posturography. See if [facility] does the test and takes [employer]. If they don't, check [facility], [facility] and [facility] documented in this encounter Plan of Treatment DateTypeDepartmentCare Team (Latest Contact Info)Qlthrrzartp01/03/2025 2:20 PM ESTOffice Visit [facility] [address] [place] [address] Thu Whalen MD [address] [place] [address] documented as of this encounter Visit Diagnoses Not on filedocumented in this encounter Care Teams Team MemberRelationshipSpecialtyStart DateEnd Date Anna Navarro MD [facility] [place] [phone] Referring PhysicianFamily Ecaxzmrp94/22/25documented as of this encounter
--- OUTSIDE RECORDS SUMMARY | 2025-07-06 16:09 | XMS_ITS | CCD ---
Author Organization [facility] Care Team Providers Care Lath Tier Name Role Phone Anna Anthony Primary Care Physician Ana Tobin Attending Unavailable Ana Tobin Admitting Unavailable Roger Davis MD Attending Provider Roger Davis Attending Unavailable Roger Davis Admitting Unavailable Ana Tobin Referring Unavailable Ana Tobin Attending Unavailable Ana Tobin Admitting Unavailable BRE STUART Attending Unavailable BRE STUART Attending Unavailable BRE STUART Referring Unavailable Unavailable Primary Care Provider UnavailAnna Smith MD Unavailable LIDIA LUU Attending Unavailable THU ANDERSEN Attending Unavailable Allergies Allergy ClassificationReported Allergen(s)Allergy TypeDate of OnsetReaction(s) Facility (4 sources)Codeine; Translations: [CODEINE]Drug Cqwpijx19-06-5600Cclaflz [facility] Repository (4 sources)Penicillins; Translations: [PENICILLINS]Propensity to adverse reactions to drug (disorder)12-00-9459TqufewnRaqbeerihpC[facility] Repository (2 sources)LidocaineDrug Irrbvvy88-18-8554BnfkgFKBM Healthcare Medications Current Medications MedicationDrug Class(es)DatesSig (Normalized)Sig (Original)24 hr amphetamine aspartate 3.75 mg / amphetamine sulfate 3.75 mg / dextroamphetamine saccharate 3.75 mg / dextroamphetamine sulfate 3.75 mg extended release oral capsule (3 sources)Central Nervous System Stimulanttake 1 capsule by mouth once daily, then take 1 capsule by mouth every twenty-four hoursamphetamine- dextroamphetamine XR (Adderall XR) 15 MG 24 hr capsule Take 15 mg by mouth Daily Activecyclobenzaprine hydrochloride 10 mg oral tablet (3 sources)Muscle Relaxanttake 1 tablet by mouth every eight hours as needed for muscle spasmscyclobenzaprine (Flexeril) 10 MG tablet TALE 1 TABLET BY MOUTH EVERY 8 HOURS NEEDED FOR MUSCLE SPASM ActiveEthinyl Estradiol / Ferrous fumarate / Norethindrone (3 sources)Estrogentake 1 tablet by mouth once dailyBlisovi 24 Fe 1-20 MG- MCG(24) tablet Take 1 tablet by mouth Daily Ouuuwb31 hr metoprolol succinate 25 mg extended release oral tablet (3 sources)beta-Adrenergic BlockerStart: 83-92-5475gxko 1 tablet by mouth once dailymetoprolol succinate XL (Toprol-XL) 25 MG 24 hr tablet Take 25 mg by mouth Daily 03/16/2025 Active Problems Problem ClassificationProblemDateDocumented DateEpisodic/ChronicAttention- deficit, conduct, and disruptive behavior disorders (3 sources)Attention deficit hyperactivity disorder; Translations: [Attention- deficit hyperactivity disorder, unspecified type]Onset: ChronicCardiac dysrhythmias (3 sources)Supraventricular tachycardia; Translations: [SVT (supraventricular tachycardia)]Onset: 070436-45-7470LgmrznlVhsdfzy dysrhythmias (5 sources)Palpitations; Translations: [Palpitations]Onset: 33-97-8752Xmybdmze Conditions associated with dizziness or vertigo (9 sources)Dizziness and giddiness; Translations: [Dizziness]Onset: 03-31-2025 EpisodicDisorders of lipid metabolism (3 sources)Pure hypercholesterolemia; Translations: [Pure hypercholesterolemia, unspecified]Onset: 005928-39-6485BoxgiekSmsgpyfhouzi with complications and secondary hypertension (5 sources)Hypertensive heart disease without heart failure; Translations: [Benign hypertensive heart disease without congestive heart failure]Onset: 62-95-3682AowtlncZqkcq ear and sense organ disorders (2 sources)Tinnitus, bilateral; Translations: [Tinnitus, bilateral]Onset: 30-63-8920HlsdaoflXgwbu ear and sense organ disorders (3 sources)Bilateral tinnitus; Translations: [Tinnitus, bilateral]Onset: 261400-79-1461ZwqjqgjnPqyvz gastrointestinal disorders (2 sources)Dysphagia; Translations: [Dysphagia, pharyngoesophageal phase] 12-07-2483ZhzszvkjJghxc lower respiratory disease (2 sources)Other forms of dyspnea; Translations: [Other forms of dyspnea]Onset: 44-75-3622GknqjivoGfsvt lower respiratory disease (3 sources)Dyspnea on exertion; Translations: [Other forms of dyspnea]Onset: 503901-70-5865FdmhsvyqZqpwy nutritional; endocrine; and metabolic disorders (3 sources)Severe obesity; Translations: [Class 2 severe obesity due to excess calories with serious comorbidity and body mass index (BMI) of 38.0 to 38.9 in adult]Onset: 110590-39-4133YrkgpbqPodazjde codes; unclassified (3 sources)Sleep apnea; Translations: [Sleep apnea, unspecified]Onset: 759353-00-5140UjeegkhLbwujgf (5 sources)Syncope and collapse; Translations: [Near syncope]Onset: 03-31-2025 Episodic Results Test NameValueInterpretationReference RangeFacilityNo Panel Informationon 10-44-7347Ogyq Tone Audiometry Audio indicated normal hearing sensitivity 250-8000 Hz, bilaterally. Hallpike: Yielded negative results in both positions tested. [facility] HealthcareOffice Visiton 58-81-6978Avhuqd-up [id number] Juan Miguel Webber 1990 F Date Provider Department Center 05/27/2025 22619-TLTKTABRE EVANS JOE [facility] Family History Problem Relation Age of Onset Thyroid disease Mother Heart disease Mother Obesity Mother Hyperlipidemia Mother Other Father Family Status - Relation Status Age at Mother Alive Father Unknown Level of Service:02809 [place] OFFICE/OUTPATIENT ESTABLISHED MOD MDM 30 MIN Reason for Visit and Comments: Follow-up [404846] - Patient is here today for a follow up. Patient recently had Echo, Tilt table, 30 day monitor. Patient states she has been feeling really sweaty, dizziness, Syncope [506] Hyperlipidemia [182] Dizziness [065204] Shortness of Breath [987090] Fatigue [46] Palpitations [062415] - Racing heartNormalUniversity of Texas Children'S Hospital Orders Onlyon 95-95-0838Ngmaeb [id number] Juan Miguel Webber 1990 F Date Provider Department Center 04/22/2025 [id number], HISTORICAL JOE Alves Family History Problem Relation Age of Onset Thyroid disease Mother Heart disease Mother Obesity Mother Hyperlipidemia Mother Other Father Family Status - Relation Status Age at Mother Alive Father UnknownNormalUni[address] Regarding serious report on event monitor on 04/03/2025: MD Chuyita Almanza MA Can you please check with the patient if she recalls that what she was doing at that time and if she had symptoms. Thank you Spoke with patient. She said she thinks she was either walking into the library at that time, or playing a board game at the [employer]. Currently has 11 more days left to wear event monitor.[facility] HospitalOffice Visit on 77-37-6875Zjhguk-up [id number] Juan Miguel Webber 1990 F Date Provider Department Center 03/31/2025 24073-RUAVKMBRE STUART JOE Alves Family History Problem Relation Age of Onset Thyroid disease Mother Heart disease Mother Obesity Mother Hyperlipidemia Mother Other Father Family Status - Relation Status Age at Mother Alive Father Unknown Level of Service:34029 SD OFFICE/OUTPATIENT NEW MODERATE MDM 45 MINUTES Reason for Visit and Comments: Hypertension [542492] New Patient [632][facility] HospitalMA Mamm Diag w/CAD if perf and 3D Bilon 49-80-4388KY Mamm Diag w/CAD if perf and 3D BilExam Date/Time: 03/10/2025 13:31 EDT Reason for Exam: [...] very important to your health. The current Citizen [employer] [place] [employer] and National Comprehensive Cancer [...] Assessment: BI-RADS Category 1-Negative Recommendation: Normal interval follow-upDayton VA Medical CenterUS Breast Unilateral Rt Completeon 29-50-6506CY Breast Unilateral Rt CompleteExam Date/Time: 03/10/2025 13:59 EDT Reason for Exam: N64.9 Disorder of breast, unspecified Report PLEASE REFER TO THE MAMMOGRAM REPORT. Ordering Provider: Ana Tobin FINAL REPORT Dictated: 03/10/2025 2:35 pm Lionel Hunter M.D. Signed (Electronic Signature): 03/10/2025 2:35 pm Signed by: Lionel Hunter M.D. Transcribed by: ANAHY Technologist: [facility] Cultureon 11-39-9987Xxmednnt identified Cx Nom (U)ORGANISM: Escherichia coli (O:ESCCOL) Kaycee Count >100,000 Aerobic DELMAR Charge (NMIC56) SUSCEPTIBILITY ORGANISM: O:ESCCOL ANTIBIOTIC INTERPRETATION DELMAR Amikacin S <16 Amoxacillin/K Clavulanate S <8 Ampicillin R >16 Ampicillin/Sulbactam S <4 Aztreonam S <4 Cefazolin S <2 Cefepime S <2 Ceftazidime S <1 Ceftazidime/Avibactam S <4 Ceftolozane/Tazobactam S <2 Ceftriaxone S <1 Cefuroxime S <4 Ciprofloxacin S <0.25 Ertapenem S <0.5 Gentamicin S <2 Levofloxacin S <0.5 Meropenem S <1 Meropenem/Vaborbactam S <2 Nitrofurantoin S <32 Piperacillin/Tazobactam S <8 Tetracycline S <4 Tigecycline S <2 Tobramycin S <2 Trimethoprim/Sulfamethoxazole S <0.5 S = SUSCEPTIBLE I = INTERMEDIATE R = RESISTANT BLANK = DATA NOT AVAILABLE, OR DRUG NOT ADVISABLE OR TESTED R* = RESISTANCE DUE TO EXTENDED SPECTRUM BETA-LACTAMASES ESBL = EXTENDED SPECTRUM BETA-LACTAMASE TFG = THYMIDINE-DEPENDENT STRAIN CONSUELO = BETA-LACTAMASE POSITIVE IB = INDUCIBLE BETA-LACTAMASE. APPEARS IN PLACE OF 'S' WITH SPECIES KNOWN TO POSSESS INDUCIBLE BETA-LACTAMASES. POTENTIALLY THEY MAY BECOME RESISTANT TO ALL B-LACTAM DRUGS. PERFORMED BY: [place] [address] PATHOLOGIST INTERNAL COMBUSTION ENGINE INSPECTOR GIOVANNI CONTRERAS M.D.[facility] Physician GroupComment on above: Performed By: #### CU[facility] #### [place] [address] USAPhysician Orderon [id number] Order [id number]#1.00TIFOhioHealth Nelsonville Health Center Vital Signs Date TimeVital SignValuePerforming QshxhydimTrbtjueb62-56-2959 14:38-0400Body kvivfs594.7 cmThu Andersen MD Work Phone: [facility] CenterHvyexbvoui81-36-0611 14:38-0400Body mass index (BMI) [Ratio]40.29 kg/j9AtuytuThu Andersen MD Work Phone: [facility] CenterAvfieztiyr65-93-3246 14:38-0400Body vmwseq679.2 kgThu Andersen MD Work Phone: [facility] CenterMbjvivgahg33-06-3123 14:38-0400Diastolic blood pjdaalel06 mm[Hg]Thu Andersen MD Work Phone: [facility] CenterWcpxuzsjnz04-39-4165 14:38-0400Heart rate88 /min Thu Andersen MD Work Phone: [facility] CenterUihmwwinpm57-82-5718 14:38-0400Systolic blood uiifqjly82 mm[Hg]Thu Andersen MD Work Phone: noSC Healthcare Encounters Encounter DateEncounter TypeCare ProviderFacilityStart: 06-23-2025 End: 25-20-4851Adnwwh outpatient new 45 minutesThu Andersen MD Work Phone: no[facility] OtolaryngologyComment on above:Dizziness and giddiness (Primary Dx); Pharyngoesophageal dysphagiaStart: 06-23-2025 End: 81-47-7723vahcxlijqpIYXOZK H TIMMISNot AvailableStart: 06-23-2025 End: 21-03-6678Wgkisa [place] Andersen MD Work Phone: noMer[facility] OtolaryngologyStart: 06-23-2025 End: 38-23-1957Aumhxh flowsEdilma Andersen MD Work Phone: noms [place] OtolaryngologyStart: 06-15-2025 End: 38-50-2686gxoldllcbrLRWLSJY S WRIGHTNot AvailableStart: 06-15-2025 End: 18-09-1546Gqxgnuu encounter Lorne Luu AUD Work Phone: [facility] Carrera AudiologyComment on above: Dizziness (Primary Dx)Start: 06-15-2025 End: 55-12-5442Oagvxg flowsSravani Luu AUD Work Phone: [facility] Carrera AudiologyStart: 06-15-2025 End: 08-66-0838Ymxryv flowsheetLidia Luu AUD Work Phone: [facility]rera AudiologyStart: 05-27-2025 End: 40-26-4076uyelqvcwhmAEUEEMemorial Health System Selby General Hospitaltart: 05-20-2025 End: 98-48-6964esbnwixiqiQLBBAMemorial Health System Selby General Hospitaltart: 03-31-2025 End: 07-68-5804rmqmgtdmukOMFIJMemorial Health System Selby General Hospitaltart: 03-10-2025 End: 02-34-5355cctdcnalocObwwwq J LampeFacility:FTMCStart: 09-05-2024 End: 65-30-3702erecvsuhzmOnswjyy M [facility] Work Phone: Start: 09-05-2024 End: 31-29-9896Hfgrdscm Monty Davis MD Work Phone: [facility] Path Spec Angie HospStart: 02-20-2024 End: 27-73-7233jjqvpndvzqXoxzaq J LampeFacility:FTMCStart: 02-20-2024 End: 54-56-1807Mhd Drop offAna Tobin [facility] Procedures DateProcedureProcedure DetailPerforming ClinicianStart: 11-64-8075UUMKMGTI FUNCTION TESTSiLdia Luu AUD Work Phone: Plan of Treatment DateCare ActivityDetailAuthorStart: 06-23-2025 End: 17-15-8895Ynpmvzo encounter dqegdfzjf38/22/2025 2:40 PM EDT Office Visit [facility] [address] [place] [phone] Thu Andersen MD [address] [place] [address] ArrivedNOMS Mario OtolaryngologyComment on above:ArrivedStart: 06-18-2025 End: 36-69-6132Pkfvkpq encounter zfjhyytjj48/17/2025 1:10 PM EDT Office Visit [facility] [address] [facility] [address] [place] [address] Thu Andersen MD [address] [facility] [address] [place] [address] [facility] OtolaryngologyStart: 45-71-5259Olbbowpls vaccinationInfluenza Vaccine (#1)NOM HealthcareStart: 25-81-1838Tvluuszp identified in Urine by CultureUrine [facility] Centertart: 13-44-5531DejkvParkview Health [facility] Hospital Start: 04-93-9308Olrobnxbu for malignant neoplasm of cervixNOMS HealthcareStart: 08-40-5756Yknaburrs for malignant neoplasm of cervixPap SmearNOMS Healthcare Payers DatePayer CategoryPayerPolicy [id number] (Managed Care)[place] [employer] [id number] [id number] [id number] [id number] Social History DateTypeDetailFacilityTobacco smoking statusMercy Health Clermont Hospitaltart: 04-79-0874Njd Assigned At BirthFeBlanchard Valley Health System Bluffton HospitalTobacc smoking status NHISUnknown if ever smokedNOMS HealthcareStart: 67-53-7079Zar Female (finding)[facility] Foundationtart: 53-12-5178Sru Assigned At BirthFeBerger Hospitaltart: 37-08-3244Ivj assigned at birthNot on fileNOMS HealthcareStart: 79-74-6142AryMlyiboYPGU HealthcareStart: 01-11-7027Zpmzriw smoking status NHISNever smoked tobaccoNOMS HealthcareStart: 54-34-2233Mvakkgl use and exposureSmokeless tobacco non-userNOMS Healthcare Start: 96-16-0994Ghkkmey of Social functionNOMS Healthcare History of Present illness Narrative 06-23-2025 Note Date & YnozNqhjJsnsjrsj17-04-4234 History of Present illness Narrative* Thu Andersen MD - 06/23/2025 2:40 PM EDT Subjective Patient ID: Juan Miguel Webber is a 34 y.o. female who [...] appears well-developed, well-nourished and well-groomed, Constitutional comments: [place]-Hallpike normal Head and Face Appearance: head appears [...] c/w orthostasis, but I would think the insert molding operator who referred her would have ruled [...] file prior to visit. documented in this encounterUniversity [facility] History of Present illness Narrative 06-15-2025 Note Date & YayuCxfzMiyeedjb14-37-2048 History of Present illness Narrative* Lidia Berumen FRANCINE Luu - 06/15/2025 2:45 PM EDT History: Patient was referred for an audiological evaluation, reporting vertigo. Patient stated symptoms have been ongoing for a number of years, however, the episodes have worsened over the past 3 years. Patient reported symptoms are typically present when going from a sitting to standing position, but it will not always occur with this movement. She stated symptoms will last for approximately 5-10 minutes. Patient also experiences constant bilateral tinnitus. She denies symptoms of hearing loss or earpain. History is negative for noise exposure. Otoscopic Exam: Revealed ear canals were clear from excessive cerumen, bilaterally. Pure Tone Audiometry Audio indicated normal hearing sensitivity 250-8000 Hz, bilaterally. Hallpike: Yielded negative results in both positions tested. Speech Audiometry Right SRT = 10 dB and word discrimination score at 40 dBHL = 100% Left SRT = 10 dB and word discrimination score at 40 dBHL = 100% Tympanometry Normal tympanograms, bilaterally, indicating normal middle ear function Impressions: 1. Dr. Andersen 06-18-2025 documented in this encounterUniversity Health [facility] Center Progress note 05-27-2025 Note Date & GsisQcmhOxpnyzeu70-90-2543 [facility] Reason for cardiology visit: Follow-up on dizziness, palpitations, shortness of breath on exertion HPI: 05/27/2025 Patient is here today for follow-up visit. She states her vertigo symptoms have been better they are less severe and less frequent and she is going to physical therapy. She continued to have exertional dyspnea. Her blood pressure still on the high side. She still has palpitations. She denies any chest pain or orthopnea or paroxysmal nocturnal dyspnea or legs edema 03/31/2025 Juan Miguel Webber is a 34 y.o. [...] use drugs. Family History Family History[1] Allergies Codeine and Penicillins Medications Current Medications[2] Last Recorded Vitals Visit Vitals BP (!) 137/92 (BP Location: Left arm, Patient Position: Sitting) Pulse 99 Ht 1.727 m (5' 8 ) Wt 115 kg (254 lb) SpO2 97% BMI 38.62 kg/m??? Smoking Status Never BSA 2.35 m??? Physical Examination: GENERAL: alert and oriented x3, well developed, in no acute distress. HEAD: atraumatic, normocephalic. EYES: LINK, EOMI. NECK: trachea midline, no JVD present, no carotid bruits present. CARDIAC: S1, S2 present. RRR. No murmur, rubs, or gallops. RESPIRATORY: CTAB, no increased effort of breathing, no rales, rhonchi, or wheezing. ABDOMEN: soft, nontender, nondistended. EXTREMITIES: no lower extremity edema. No rash/skin discoloration present. NEURO: strength/sensation equal and symmetric in bilateral upper and lower extremities. PSYCH: appropriate mood, affect, and judgement. Labs: 02/16/2025 Cholesterol 197, HDL 50, triglyceride 138, LDL 121, Glucose 107, BUN 10, (more content not included)...[facility] Progress note 03-31-2025 Note Date & AsxyDhkrEgsldhqe23-97-8526 NoteB[facility]vue Office [facility] Note Reason for cardiology [...] EKG Assessment and Pl (more content not included)...[facility] Evaluation + Plan note Note Date & TypeNoteFacilityEvaluation + Plan note No data available for this section [facility] Evaluation note Note Date & TypeNoteFacilityEvaluation noteNo assessment information available [facility] Work Phone: Evaluation note Note Date & TypeNoteFacilityEvaluation note* Diagnosis Dizziness- Primary Dizziness and giddiness documented in this encounter [facility] Healthcare Evaluation note Note Date & TypeNoteFacilityEvaluation note* Diagnosis Dizziness and giddiness- Primary Pharyngoesophageal dysphagia Dysphagia, pharyngoesophageal phase documented in this encounter [facility] Discharge instructions Note Date & TypeNoteFacilityHospital Discharge instructions No data available for this section [facility] Progress note Note Date & TypeNoteFacilityProgress note No data available for this section [facility] Summary Purpose Family History No Family History [...] rt: September 05, 2024 End: September 05, 2024Team MemberRelationshipSpecialtyStart DateEnd Date Anna Navarro MD [address] [place] [phone] Referring [facility]icianH[facility] Hospital06/23/25Team MemberRelationshipSpecialtyStart DateEnd Date Anna Navarro MD [address] [place] [phone] Referring PhysicianHiggins General Hospital06/23/25 INFORMATION SOURCE (unrecogn ized section and content) DATE CREATED AUTHOR 02/22/2024 [facility] DATE CREATED AUTHOR AUTHOR'S ORGANIZ ATION 09/12/2024 [facility] DATE CREATED AUTHOR AUTHOR'S ORGANIZ ATION 03/22/2025 [facility] DATE CREATED AUTHOR AUTHOR'S ORGANIZ ATION 06/04/2025 [facility] DATE CREATED AUTHOR AUTHOR'S ORGANIZ ATION 06/25/2025 [facility] EPIC Goals (unrecognized section and content) Goals may be documented in a n alternate section Reason for Visit (unrecogniz ed section and content) ReasonCommentsTinnitusAudio 06/15/25 FOR RECORDS PERTAINING TO PATIENTS WHO ARE [...] BE BASED ON THE PRIMARY CLINICAL RECORDS. [facility] [facility]. provides no warranty or guarantee of the accuracy or completeness of information in this document.
[2025-07-06 17:00] LABS: Thyroid Stimulating Hormone 2.868 uIU/mL (0.358-3.740)
== END 2025-07-06 16:00 | disposition home or self-care (01) ==
PROVIDERS: Visit Provider Internal Medicine Cardiovascular Disease
DX: R00.2 Palpitations (principal)
CPT/HCPCS: 36415; 84439; 84443; 84480

== ENCOUNTER 2025-07-07 20:48 | Outpatient (OUT) | payer OTHER, SELFPAY ==
--- OUTSIDE RECORDS SUMMARY | 2025-06-23 13:40 | XMS_ITS | Encounter Summary ---
Author Organization [facility] Address [address] [facility] [place] [address] Care Team Providers Care Protective Signal Operations Supervisor Name Role Phone Anna Navarro MD Unavailable [phone] Reason for Referral * Imaging (Routine) - AuthorizedSpecialtyDiagnoses / ProceduresReferred By ContactReferred To ContactRadiology Diagnoses Pharyngoesophageal dysphagia Procedures FL esophagus barium swallow Thu Whalen MD [address] [facility] [address] [place] [address] Phone: tel: fax: [place] [facility] [facility] [address] [place] [address] Phone: tel: fax: Referral IDStatusReasonStart DateExpiration DateVisits RequestedVisits [id number] Perform Procedure / Reason for Visit * ReasonCommentsTinnitusAudio 06/15/25 Encounter Details DateTypeDepartmentCare Team (Latest Contact Info)Xpnynzhqfzc58/22/2025 2:40 PM EDTOffice Visit [facility] [address] [place] [address] [place] [address] Thu Whalen MD [address] [facility] [address] [place] [address] Dizziness and giddiness (Primary Dx); Pharyngoesophageal dysphagia Social History Tobacco UseTypesPacks/DayYears UsedDateSmoking Tobacco: NeverSmokeless Tobacco: Never Tobacco Cessation:Counseling Given: Not Answered CommentsUnknownSex and Gender InformationValueDate RecordedSex Assigned at BirthNot on fileLegal XrhBcxswg68/01/2023 8:35 PM EDTGender IdentityNot on fileSexual OrientationNot on filedocumented as of this encounter Last Filed Vital Signs Vital SignReadingTime TakenCommentsBlood Ynjmqkvr06/5810 2:38 PM EDT Bbcxz581306/23/2025 2:38 PM EDTTemperature--Respiratory Rate--Oxygen Saturation-- Inhaled Oxygen Concentration--Uolxia796 kg (265 lb)06/23/2025 2:38 PM EDTHeight 172.7 cm (5' 8 )06/23/2025 2:38 PM EDTBody Mass Index40.291 2:38 PM EDT documented in this encounter Progress Notes * Thu Whalen MD - 06/23/2025 2:40 PM EDT Subjective Patient ID: Suki Webber is a 34 y.o. female who presents for Tinnitus (Audio 06/15/25) Pt reports she gets vertigo when lying flat in bed. Last up to all night. Usually lasts 5 minutes. Also gets dizzy and has a muffled sound when first stands up. Passed tilt table test. Has had sx since before beginning metoprolol. Pt also reports she has had tinnitus since she was a young child. 06/15 audio and tymps are normal. Pt states she chokes on stuff all the time . Feels food getting stuck in her chest. Review of Systems All other systems reviewed and are negative. Family History[1] Active Ambulatory Problems Diagnosis Date Noted Attention deficit hyperactivity disorder (ADHD) 03/31/2025 Benign hypertensive heart disease without congestive heart failure 06/03/2025 Class 2 severe obesity due to excess calories with serious comorbidity and body mass index (BMI) of38.0 to 38.9 in adult 03/31/2025 LY (dyspnea on exertion) 03/31/2025 Near syncope 03/31/2025 Palpitations 03/31/2025 Pure hypercholesterolemia 03/31/2025 Sleep apnea 03/31/2025 SVT (supraventricular tachycardia) (HCC) 06/03/2025 Tinnitus of both ears 03/31/2025 Vertigo 03/31/2025 Resolved Ambulatory Problems Diagnosis Date Noted No Resolved Ambulatory Problems No Additional Past Medical History Surgical History[2] Allergies[3] Medications Ordered Prior to Encounter[4] Objective Last Recorded Vitals Vitals: 06/23/25 1438 BP: (!) 60/58 Pulse: 88 ENT Physical Exam Constitutional Appearance: patient appears well-developed, well-nourished and well-groomed, Constitutional comments: [place]-Hallpike normal Head and Face Appearance: head appears normal and face appears atraumatic; Ear Ear Canals: right ear canal normal; left ear canal normal; Tympanic Membranes: right tympanic membrane normal; left tympanic membrane normal; Nose External Nose: nares patent bilaterally; external nose normal; Internal Nose: septum normal; Oral Cavity/Oropharynx Tongue: normal; Oral mucosa: normal; Hard palate: normal; Soft palate: normal; Tonsils: normal; Neck Neck: neck normal; neck palpation normal; Thyroid: thyroid normal; Respiratory Inspection: breathing unlabored; normal breathing rate; Auscultation: breath sounds are clear; Cardiovascular Inspection: extremities are warm and well perfused; no peripheral edema present; Auscultation: regular rate and rhythm; Assessment/Plan Diagnoses and all orders for this visit: Dizziness and giddiness Pharyngoesophageal dysphagia Pt has sx that seem ost c/w orthostasis, but I would think the dieing out machine operator who referred her would have ruled that out. I will check a VNG/posturography to assess for a peripheral vestibulopathy. I will order an esophagram to evaluate pt's dysphagia. May need a GI referral given the pt's description of the location food becoming impacted. [1] No family history on file. [2] Past Surgical History: Procedure Laterality Date WISDOM TOOTH EXTRACTION [3] Allergies Allergen Reactions Codeine Itching Lidocaine Other Penicillins Unknown [4] Current Outpatient Medications on File Prior to Visit Medication Sig Dispense Refill amphetamine-dextroamphetamine XR (Adderall XR) 15 MG 24 hr capsule Take 15 mg by mouth Daily Blisovi 24 Fe 1-20 MG-MCG(24) tablet Take 1 tablet by mouth Daily cyclobenzaprine (Flexeril) 10 MG tablet TALE 1 TABLET BY MOUTH EVERY 8 HOURS NEEDED FOR MUSCLE SPASM metoprolol succinate XL (Toprol-XL) 25 MG 24 hr tablet Take 25 mg by mouth Daily No current facility-administered medications on file prior to visit. documented in this encounter Miscellaneous Notes * Addendum Note - Cat Hargrove MA - 06/23/2025 2:40 PM EDTAddended by: CAT HARGROVE on: 06/28/2025 09:57 AM Modules accepted: Orders documented in this encounter Plan of Treatment DateTypeDepartmentCare Team (Latest Contact Info)Tgifkffrmqk63/03/2025 2:20 PM ESTOffice Visit [facility] [address] [facility] [address] [place] [address] Thu Whalen MD [address] [facility] [address] [place] [address] NameTypePriorityAssociated DiagnosesOrder ScheduleFL esophagus barium swallow ImagingRoutine Pharyngoesophageal dysphagia Expected: 06/28/2025, Expires: 06/28/2026documented as of this encounter Visit Diagnoses Diagnosis Dizziness and giddiness- Primary Pharyngoesophageal dysphagia Dysphagia, pharyngoesophageal phase documented in this encounter Care Teams Team MemberRelationshipSpecialtyStart DateEnd Date Anna Navarro MD [address] [place], [place] [address] [address] Referring PhysicianFamily Ggjhufrk40/22/25documented as of this encounter
--- OUTSIDE RECORDS SUMMARY | 2025-07-06 15:00 | XMS_ITS | Encounter Summary ---
Author Organization [facility] Address [address] [facility] [place] [address] Care Team Providers Care Range Ecologist Name Role Phone Unavailable Primary Care Provider Unavailabl e Reason for Referral * Genetic Testing (Routine) - Pending ReviewSpecialtyDiagnoses / Procedures Referred By ContactReferred To ContactLab Diagnoses Palpitations Procedures T4, free Josr Concepcion MD [address] [place] [address] Phone: tel: fax: Referral IDStatusReasonStart DateExpiration DateVisits RequestedVisits [id number]/ Reason for Visit * ReasonCommentsFollow-upPatient is here today for a follow up per Dr. Kruse request.Patient recently wore 30 day montior.Patient denies chest pain,Near syncopeSVTHypertensionHyperlipidemiaPalpitationsPalpation/racing heart has decreased since starting matoprololDizzinessDizziness/lightheaded happens frequently with standing/position changesFatigueTired all the time Encounter Details DateTypeDepartmentCare Team (Latest Contact Info)Tigcsdsvfwr28/04/2025 3:[address] [facility] [address] [place] [address] Josr Concepcion MD [address] [place] [address] Palpitations (Primary Dx) Social History Tobacco UseTypesPacks/DayYears UsedDateSmoking Tobacco: NeverSmokeless Tobacco: NeverAlcohol UseStandard Drinks/WeekCommentsNot Currently0 (1 standard drink = 0.6 oz pure alcohol)CommentsUnknownSex and Gender InformationValueDate RecordedSex Assigned at IkalyGgtqde92/30/2025 9:28 AM EDTLegal SexFemale 03/04/2025 11:19 AM EDTGender IkksyqssPpfcmv45/30/2025 9:28 AM EDTSexual OrientationHeterosexual or Kdezrtec85/30/2025 9:28 AM EDTdocumented as of this encounter Last Filed Vital Signs Vital SignReadingTime TakenCommentsBlood Spzkcpyw206/ 2:58 PM EST Sowdp345507/06/2025 2:58 PM ESTTemperature--Respiratory Rate--Oxygen Fhoeugldeq94% 07/06/2025 2:58 PM ESTInhaled Oxygen Concentration--Weight--Hgfgau199.7 cm (5' 8 )07/06/2025 2:58 PM ESTBody Mass Index--documented in this encounter Functional Status * BPAnswerDate of WprdgttoisKurics034 2:58 PM Delmy Christianson MA * PulseAnswerDate of ButloglubeLgqftf7240/04/2025 2:58 PM Delmy Christianson MA * Patient PositionAnswerDate of OzhzoycigrWhfqyjZmedyus10/04/2025 2:58 PM Delmy Peters MA * BPAnswerDate of HcnvpcxdtuCqsfwf178 2:58 PM Delmy Christianson MA * PulseAnswerDate of WqwnozbozjPyabtj4447/04/2025 2:58 PM Delmy Christianson MA * GoZ3JkcwrrMpqz of GkjnksbayjMkbahj6636/04/2025 2:58 PM Delmy Christianson MA * BP LocationAnswerDate of AssessmentAuthorRight arm07/06/2025 2:58 PM Delmy Peters MA * Patient PositionAnswerDate of GbxewphqvuGvuscpHtdihyt80/04/2025 2:58 PM Delmy Peters MA documented as of this encounter Progress Notes * Josr Concepcion MD - 07/06/2025 3:00 PM EST Images from the original note were not included. [place] Electrophysiology Consult Note [place] Cardiology [facility] Reason for visit: Palpitations HPI: Suki Webber is a 34 y.o. year old with past medical history of ADHD, anxiety disorder, depression hypertension obesity who had previously seen Dr. Teri Tavera for the above. She had describedthat her symptoms has been progressively getting worse and the dizziness is usually when she gets up from a sitting position. Summary of her description is as follows: Patient states that she had dizziness episodes [...] feels that things are spinning. She states thatshe never fainted. She feels that she has [...] floating even if she is sitting down. Subsequently an echocardiogram was done on 04/21/2025 which revealed normal EF and no structural heart disease. A 30-day event monitor was placed on 03/31/2025 to 04/30/2025 revealed episodes of fast heart rate at 175 bpm Furthermore a tilt table study was done during which time there was no evidence of any syncope . However the blood pressure change at 10 minutes of tilting from 174/93 to 130/101 with no change in heart rate with subsequent resumption of the blood pressure to 165/139 and a repeat 16 minutes to 139/104 with an increase of heart rate from 85 bpm to 104 could be fitting with POTS. She was started on Toprol-XL which she found not to find much benefits I proceeded to perform an ambulatory walk with the patient and noted that her baseline heart rate was in the 100 range and with ambulation she achieved a heart rate in the 140s with return to baseline in 1 min. It appeared that this was more indicative of deconditioning Tilt values PMH: Medical History[1] PSH: Surgical History[2] SH: Social Drivers of Health Tobacco Use: Low Risk (07/06/2025) Patient History Smoking Tobacco Use: Never Smokeless Tobacco Use: Never Passive Exposure: Not on file Alcohol Use: Not on file Financial Resource Strain: Not on file Food Insecurity: Not on file Transportation Needs: Not on file Physical Activity: Not on file Stress: Not on file Social Connections: Not on file Intimate Partner Violence: Not on file Depression: Not on file Housing Stability: Not on file Utilities: Not on file Health Literacy: Not on file Allergies: Allergies[3] Weight: No weight available Visit Vitals BP 130/86 (BP Location: Right arm, Patient Position: Sitting) Pulse 84 Ht 1.727 m (5' 8 ) SpO2 98% BMI 38.62 kg/m?? Smoking Status Never BSA 2.35 m?? Meds: Medications Ordered Prior to Encounter[4] ROS: Review of Systems Constitutional: Positive for malaise/fatigue. Cardiovascular: Positive for irregular heartbeat and palpitations. Neurological: Positive for dizziness and headaches. Physical Exam: Constitutional General Appearance: well-nourished, well-developed, appears stated age Level of Distress: comfortable Eyes DEMI Neck Neck: supple, trachea midline Carotid Arteries: bilateral normal upstroke, no bruits Jugular Veins: normal jugular venous pressure Thyroid: not enlarged Lungs Respiratory Effort: unlabored Chest Exam: normal curvature, no thoracic deformity Auscultation: clear, no wheezing, no rales, no rhonchi Cardiovascular Chest wall: Rate And Rhythm: regular Heart Sounds: normal S1, normal s2, no gallop Systolic Murmur: not heard Diastolic Murmur: not heard Extremities: no cyanosis, no edema, no peripheral signs of emboli Peripheral Pulses Radial Pulse: normal Abdomen Inspection and Palpation: soft, non distended, no bruit, non tender Neurologic Gait: normal gait Labs: @LABRESULTS@ No results found for: CHOLESTEROL TOTAL , HDL , LDL CALC , LDL DIRECT , TRIGLYCERIDES , TSH , T3 TOTAL , T4 TOTAL , THYROID PEROXIDASE AB , BNP EKG: Encounter Date: 03/31/25 ECG 12 lead Narrative Normal sinus rhythm, heart rate 84 bpm, normal EKG Echo: 04/21/2025 Stress test: Coronary angiogram: @CATH@ Event monitor Assessment and Plan: -Palpitations - ADHD - Obesity After reviewing the heart rate response to activity and walking, I compared my heart rate response to hers and educated her about the fact that she could be probably having inappropriate sinus response due to deconditioning. It is also quite possible that her ADHD medication is also contributing tothis. At this stage have advised her to focus on exercise and weight loss and to daily monitor her heart rate response to see how the heart rate slope will vary with weight loss and exercise. She will need evaluation for thyroid disorders and also to rule out evidence of catecholamine excess. Jsor Concepcion MD Cardiac Electrophysiology [facility] [1] Past Medical History: Diagnosis Date Abnormal ECG ADHD Anxiety Depression Eczema Hypertension Palpitation Tachycardia [2] History reviewed. No pertinent surgical history. [3] Allergies Allergen Reactions Codeine Itching Lidocaine Other Penicillins Unknown [4] Current Outpatient Medications on File Prior to Visit Medication Sig Dispense Refill amphetamine-dextroamphetamine XR (Adderall XR) 15 mg 24 hr capsule Take 1 capsule by mouth in the morning. Blisovi 24 Fe 1 mg-20 mcg (24)/75 mg (4) tablet Take 1 tablet by mouth in the morning. cyclobenzaprine (Flexeril) 10 mg tablet Take 10 mg by mouth if needed. metoprolol succinate XL (Toprol-XL) 50 mg 24 hr tablet Take 1 tablet (50 mg) by mouth in the morning. Do not crush or chew. 90 tablet 3 No current facility-administered medications on file prior to visit. documented in this encounter Plan of Treatment NameTypePriorityAssociated DiagnosesOrder ScheduleTSHLabRoutine Palpitations Expected: 07/06/2025 (Approximate), Expires: 07/06/2026T4, freeLabRoutine Palpitations Expected: 07/06/2025 (Approximate), Expires: 07/06/20268482E3GbyDlevwnp Palpitations Expected: 07/06/2025 (Approximate), Expires: 07/06/2026Metanephrines PlasmaLab Routine Palpitations Expected: 07/06/2025 (Approximate), Expires: 07/06/2026Metanephrines, urineLab Routine Palpitations Expected: 07/06/2025 (Approximate), Expires: 07/06/2026documented as of this encounter Visit Diagnoses Diagnosis Palpitations- Primary documented in this encounter
--- OUTSIDE RECORDS SUMMARY | 2025-07-07 20:50 | XMS_ITS | CCD ---
Author Organization [facility] Care Team Providers Care Hardness Inspector Name Role Phone Anna Anthony Primary Care [...] of OnsetReaction(s) Facility (4 sources)Codeine; Translations: [CODEINE]Drug Pmrdafv39-14-6435Tbpvwny [facility] Repository (4 sources)Penicillins; Translations: [PENICILLINS]Propensity to adverse reactions to drug (disorder)24-87-0612NecnyyaWfcfjorqhgMemorial Hospital Repository (2 sources)LidocaineDrug Kjbneyn25-88-1997SbgraCIZJ [facility] Medications Current Medications MedicationDrug Class(es)DatesSig (Normalized)Sig [...] tablet Take 1 tablet by mouth Daily Oqgdzu83 hr metoprolol succinate 25 mg extended release oral tablet (3 sources)beta-Adrenergic BlockerStart: 89-01-8431cehr 1 tablet by mouth once dailymetoprolol succinate XL (Toprol-XL) 25 MG 24 hr tablet Take 25 mg by mouth Daily 03/16/2025 Active Problems Problem ClassificationProblemDateDocumented DateEpisodic/ChronicAttention- deficit, conduct, and disruptive behavior disorders (3 sources)Attention deficit hyperactivity disorder; Translations: [Attention- deficit hyperactivity disorder, unspecified type]Onset: ChronicCardiac dysrhythmias (3 sources)Supraventricular tachycardia; Translations: [SVT (supraventricular tachycardia)]Onset: 931941-14-8231YvapkfeRxmqdfu dysrhythmias (5 sources)Palpitations; Translations: [Palpitations]Onset: 66-34-1139Hnsjoboy Conditions associated with dizziness or vertigo (9 sources)Dizziness and giddiness; Translations: [Dizziness]Onset: 03-31-2025 EpisodicDisorders of lipid metabolism (3 sources)Pure hypercholesterolemia; Translations: [Pure hypercholesterolemia, unspecified]Onset: 090262-58-2876HrixwcqNpfpdznuraeb with complications and secondary hypertension (5 sources)Hypertensive heart disease without heart failure; Translations: [Benign hypertensive heart disease without congestive heart failure]Onset: 72-88-3193KcbrxtcFmxov ear and sense organ disorders (2 sources)Tinnitus, bilateral; Translations: [Tinnitus, bilateral]Onset: 16-65-9899LqsoxjevXkamg ear and sense organ disorders (3 sources)Bilateral tinnitus; Translations: [Tinnitus, bilateral]Onset: 306159-34-5141KqfbecajFbesk gastrointestinal disorders (2 sources)Dysphagia; Translations: [Dysphagia, pharyngoesophageal phase] 81-90-4606QvooqtezAfsaz lower respiratory disease (2 sources)Other forms of dyspnea; Translations: [Other forms of dyspnea]Onset: 79-15-9417QnvwirrwNsdpz lower respiratory disease (3 sources)Dyspnea on exertion; Translations: [Other forms of dyspnea]Onset: 789183-00-0841VmuksfxpZytjr nutritional; endocrine; and metabolic disorders (3 sources)Severe obesity; Translations: [Class 2 severe obesity due to excess calories with serious comorbidity and body mass index (BMI) of 38.0 to 38.9 in adult]Onset: 161638-28-0179YiewezyBabmqgfw codes; unclassified (3 sources)Sleep apnea; Translations: [Sleep apnea, unspecified]Onset: 264185-86-7353HqvgfelBojigsi (5 sources)Syncope and collapse; Translations: [Near syncope]Onset: 03-31-2025 Episodic Results Test NameValueInterpretationReference RangeFacilityNo Panel Informationon 13-70-8979Acez Tone Audiometry Audio indicated normal hearing sensitivity 250-8000 Hz, bilaterally. Hallpike: Yielded negative results in both positions tested. [facility] HealthcareOffice Visiton 25-91-2977Lrsetf-up [id number] Juan Miguel Webber 1990 F Date Provider Department Center 05/27/2025 92058-IBGVBKBRE EVANS JOE [facility] Family History Problem Relation Age of Onset Thyroid disease Mother Heart disease Mother Obesity Mother Hyperlipidemia Mother Other Father Family Status - Relation Status Age at Mother Alive Father Unknown Level of Service:52441 ME OFFICE/OUTPATIENT ESTABLISHED MOD MDM 30 MIN Reason for Visit and Comments: Follow-up [536919] - Patient is here today for a follow up. Patient recently had Echo, Tilt table, 30 day monitor. Patient states she has been feeling really sweaty, dizziness, Syncope [506] Hyperlipidemia [182] Dizziness [633049] Shortness of Breath [385535] Fatigue [46] Palpitations [374273] - Racing heartNormalUniversity of [facility] Orders Onlyon 82-38-0414Rhuazi [id number] Juan Miguel Webber 1990 F Date Provider Department Center 04/22/2025 [id number], HISTORICAL JOE Alves Family History Problem Relation Age of Onset Thyroid disease Mother Heart disease Mother Obesity Mother Hyperlipidemia Mother Other Father Family Status - Relation Status Age at Mother Alive Father UnknownNormalUni[address] Regarding serious report on event monitor on 04/03/2025: MD Chuyita Almanza MA Can you please check with the patient if she recalls that what she was doing at that time and if she had symptoms. Thank you Spoke with patient. She said she thinks she was either walking into the library at that time, or playing a board game at the [employer]. Currently has 11 more days left to wear event monitor.[facility] HospitalOffice Visit on 79-18-0811Vpazbd-up [id number] Juan Miguel Webber 1990 F Date Provider Department Center 03/31/2025 82867-GXXEUPBRE STUART JOE Alves Family History Problem Relation Age of Onset Thyroid disease Mother Heart disease Mother Obesity Mother Hyperlipidemia Mother Other Father Family Status - Relation Status Age at Mother Alive Father Unknown Level of Service:11982 ME OFFICE/OUTPATIENT NEW MODERATE MDM 45 MINUTES Reason for Visit and Comments: Hypertension [421973] New Patient [632][facility] HospitalMA Mamm Diag w/CAD if perf and 3D Bilon 74-10-1198VB Mamm Diag w/CAD if perf and 3D [...] very important to your health. The current [employer] and National Comprehensive Cancer [...] Assessment: BI-RADS Category 1-Negative Recommendation: Normal interval follow-upGrant HospitalUS Breast Unilateral Rt Completeon 08-94-3532IP Breast Unilateral Rt CompleteExam Date/Time: 03/10/2025 13:59 EDT Reason for Exam: N64.9 Disorder of breast, unspecified Report PLEASE REFER TO THE MAMMOGRAM REPORT. Ordering Provider: Ana Tobin FINAL REPORT Dictated: 03/10/2025 2:35 pm Lionel Hunter M.D. Signed (Electronic Signature): 03/10/2025 2:35 pm Signed by: Lionel Hunter M.D. Transcribed by: ANAHY Technologist: [facility] Cultureon 81-82-6925Apcqovbn identified Cx Nom (U)ORGANISM: Escherichia coli (O:ESCCOL) [place] Count >100,000 Aerobic DELMAR Charge (NMIC56) SUSCEPTIBILITY ORGANISM: O:ESCCOL ANTIBIOTIC INTERPRETATION DELAMR Amikacin S <16 Amoxacillin/K Clavulanate S <8 [...] RESISTANT TO ALL B-LACTAM DRUGS. PERFORMED BY: [place] [address] PATHOLOGIST LANDSCAPER GIOVANNI CONTRERAS M.D.[facility] Physician GroupComment on above: Performed By: #### CUU #### [place] [address] USAPhysician Orderon 34-21-4373Koidpasuc Order [id number]#1.00TIFPremier Health Upper [facility] Center Vital Signs Date TimeVital SignValuePerforming IbvscwduvCtjwpdsn77-53-5164 14:38-0400Body xstpuc542.7 cmThu Andersen MD Work Phone: [facility] SystemIcdsgnjcyf69-91-3198 14:38-0400Body mass index (BMI) [Ratio]40.29 kg/s0JjpegbThu Andersen MD Work Phone: [facility] SystemEhrnqrylwq49-53-1413 14:38-0400Body qeqaxn011.2 kgThu Andersen MD Work Phone: [facility] SystemBrgxnlmgri17-72-9462 14:38-0400Diastolic blood ohsiqkew57 mm[Hg]Thu Andersen MD Work Phone: [facility] SystemFowyjdpvjs70-64-2125 14:38-0400Heart rate88 /min Thu Andersen MD Work Phone: [facility] SystemHnaiejtsox26-17-2953 14:38-0400Systolic blood mm[Hg]Thu Andersen MD Work Phone: noPR Healthcare Encounters Encounter DateEncounter TypeCare ProviderFacilityStart: 06-23-2025 End: 72-15-0612Lilnte outpatient new 45 minutesThu Andersen MD Work Phone: noT[facility] OtolaryngologyComment on above:Dizziness and giddiness (Primary Dx); Pharyngoesophageal dysphagiaStart: 06-23-2025 End: 88-87-9803tbrqjkjcdgSSWNHT H TIMMISNot AvailableStart: 06-23-2025 End: 06-02-1755Fbgaij [place] Andersen MD Work Phone: no[facility] OtolaryngologyStart: 06-23-2025 End: 30-35-4323Ofkllf flowsEdilma Andersen MD Work Phone: [facility] [place] OtolaryngologyStart: 06-15-2025 End: 52-06-7039psilmydwotTDXWLWB S WRIGHTNot AvailableStart: 06-15-2025 End: 36-99-9190Zxlrxko encounter Lorne Luu AUD Work Phone: [facility] Carrera AudiologyComment on above: Dizziness (Primary Dx)Start: 06-15-2025 End: 22-91-1665Hhnwvb flowsSravani Luu AUD Work Phone: [facility]rera AudiologyStart: 06-15-2025 End: 09-40-4923Jsymjc flowsheetLidia Luu AUD Work Phone: [facility]rera AudiologyStart: 05-27-2025 End: 73-92-8033bzgoofapeySQVZQAshtabula General Hospitaltart: 05-20-2025 End: 94-94-7450ohsgivnywpNOFADAshtabula General Hospitaltart: 03-31-2025 End: 41-53-2288tzwytyroniQBKCHAshtabula General Hospitaltart: 03-10-2025 End: 57-29-3011hlgrwhajgcZoqzsh J LampeFacility:FTMCStart: 09-05-2024 End: 65-72-2931pzdwtehgkrPvyrjlm M [facility] Work Phone: Start: 09-05-2024 End: 09-26-1067Yacvmtix Monty Davis MD Work Phone: [facility]-LAB Path Spec [facility] HospStart: 02-20-2024 End: 84-46-3467ezodpyxkxgLflocp J LampeFacility:FTMCStart: 02-20-2024 End: 07-09-4910Knu Drop offAna Tobin [facility] Procedures DateProcedureProcedure DetailPerforming ClinicianStart: 66-00-3728IOJAHALK FUNCTION TESTSLidia Luu AUD Work Phone: Plan of Treatment DateCare ActivityDetailAuthorStart: 06-23-2025 End: 31-97-0933Lavgecf encounter xjnlbbhog53/22/2025 2:40 PM EDT Office Visit [facility] [address] [place] [phone] hTu Andersen MD [address] [place] [address] ArrivedNOMS Mario OtolaryngologyComment on above:ArrivedStart: 06-18-2025 End: 09-72-8843Txkwqyj encounter crjaolmag73/17/2025 1:10 PM EDT Office Visit [facility] [address] [facility] [address] [place] [address] Tuh Andersen MD [address] [facility] [address] [place] [address] [facility] OtolaryngologyStart: 82-34-2532Scbepjxev vaccinationInfluenza Vaccine (#1)NOM HealthcareStart: 66-71-5043Carsjjfd identified in Urine by CultureUrine [facility] VA Medical Centertart: 51-13-6798PtanoCleveland Clinic [facility] Start: 92-22-1096Ywuithfgx for malignant neoplasm of cervixNOMS HealthcareStart: 45-28-4036Evcmakqcd for malignant neoplasm of cervixPap SmearNOMS Healthcare Payers DatePayer CategoryPayerPolicy [id number] (Managed Care)[place] [employer] [id number] [id number] 2.16.840.1.804243.3.57[id number] 2.16.840.1.444782.3.57[id number] 2.16.840.1.41[id number] 2.16.840.1.658674.3.579.2.531 Social History DateTypeDetailFacilityTobacco smoking statusOhioHealth Van Wert Hospitaltart: 31-39-5823Vdc Assigned At BirthFeShelby Memorial HospitalTobacc smoking status NHISUnknown if ever smokedNOMS HealthcareStart: 72-77-1265Cux Female (finding)[facility] Hospitaltart: 31-04-8280Rfw Assigned At BirthFeProMedica Flower Hospitaltart: 58-67-3038Ekh assigned at birthNot on fileNOMS HealthcareStart: 54-37-8315SpaQinvqhLFAV HealthcareStart: 12-63-3930Ggcywuf smoking status NHISNever smoked tobaccoNOMS HealthcareStart: 64-96-7834Owsrsul use and exposureSmokeless tobacco non-userNOMS Healthcare Start: 81-94-8335Urczcim of Social functionNOMS Healthcare History of Present illness Narrative 06-23-2025 Note Date & MvuaAujwBwcwlvbx03-90-4676 History of Present illness Narrative* Thu Andresen MD - 06/23/2025 2:40 PM EDT Subjective Patient ID: Jaun Miguel Webber is a 34 y.o. female [...] appears well-developed, well-nourished and well-groomed, Constitutional comments: [place]-Hallpike normal Head and Face Appearance: head appears [...] c/w orthostasis, but I would think the care process manager who referred her would have ruled that [...] file prior to visit. documented in this encounterSaint [facility] History of Present illness Narrative 06-15-2025 Note Date & MmhtUgsuAhvrykrp33-50-6330 History of Present illness Narrative* Lidia Berumen [...] 1. Dr. Andersen 06-18-2025 documented in this encounterSaint John's Health System Progress note 05-27-2025 Note Date & PosmHaurRpwrptfk59-58-4720 [facility] Reason for [...] Glucose 107, BUN 10, (more content not included)...[facility] Progress note 03-31-2025 Note Date & XqzwRtcoFzufdktj35-12-8453 [facility] Note Reason for [...] EKG Assessment and Pl (more content not included)...[facility] Evaluation + Plan note Note Date & TypeNoteFacilityEvaluation + Plan note No data available for this section [facility] Evaluation note Note Date & TypeNoteFacilityEvaluation noteNo assessment information available [facility] Work Phone: Evaluation note Note Date & TypeNoteFacilityEvaluation note* Diagnosis Dizziness- Primary Dizziness and giddiness documented in this encounter [facility] Healthcare Evaluation note Note Date & TypeNoteFacilityEvaluation note* Diagnosis Dizziness and giddiness- Primary Pharyngoesophageal dysphagia Dysphagia, pharyngoesophageal phase documented in this encounter [facility] Hospital Discharge instructions Note Date & TypeNoteFacilityHospital Discharge instructions No data available for this section [facility] Progress note Note Date & TypeNoteFacilityProgress note No data available for this section [facility] Summary Purpose Family History No Family [...] Date Anna Navarro MD [address] [place] [phone] Referring PhysicianPhoebe Sumter Medical Center06/23/25Team MemberRelationshipSpecialtyStart DateEnd Date Anna Navarro MD [address] [place] [address] Referring PhysicianPhoebe Sumter Medical Center06/23/25 INFORMATION SOURCE (unrecogn ized section and content) DATE CREATED AUTHOR 02/22/2024 [facility] DATE CREATED AUTHOR AUTHOR'S ORGANIZ ATION 09/12/2024 [facility] DATE CREATED AUTHOR AUTHOR'S ORGANIZ ATION 03/22/2025 [facility] DATE CREATED AUTHOR AUTHOR'S ORGANIZ ATION 06/04/2025 [facility] DATE CREATED AUTHOR AUTHOR'S ORGANIZ ATION 06/25/2025 [facility] EPIC Goals (unrecognized section and [...] BE BASED ON THE PRIMARY CLINICAL RECORDS. [facility] [facility]. provides no warranty or guarantee of the accuracy or completeness of information in this document.
--- OUTSIDE RECORDS SUMMARY | 2025-07-07 20:51 | XMS_ITS | Clinical Summary ---
Author Organization [facility] Address [address] [place] [address] Care Team Providers Care Development Engineer Name Role Phone Unavailable Primary Care Provider Unavailabl e Allergies Active AllergyReactionsCriticalityNoted OkkxGggepszaKcuebviXhatrmb70/18/2025 CqjexyzcaMvfim50/22/7271AgyjdvefwvzExiibwo30/30/2025 Medications MedicationSigDispense QuantityRefillsLast FilledStart DateEnd DateStatus amphetamine-dextroamphetamine [...] Benign hypertensive heart disease without congestive heart imnfaid0806/03/2025 Jgeljek6003/31/2025Near dmtbukd1203/31/20256817Jmqzathbngfc57/30/2025DOE (dyspnea on exertion)03/31/2025Pure yrbtdnrvqdvvmgffovif63/30/2025ttention deficit hyperactivity disorder (ADHD)03/31/2025lass 2 severe obesity due to excess calories with serious comorbidity and body mass index (BMI) of38.0 to 38.9 in adult03/31/2025Sleep apnea03/31/2025Tinnitus of both ears03/31/2025 Encounters DateTypeDepartmentCare CscxThtdfhuwpfv22/04/2025 3:00 PM ESTOffice Visit [facility] [address] [place] [facility] [place] [phone] Josr Concepcion MD Palpitations (Primary Dx)05/30/2025Results Follow-Up [facility] [address] [place] [address] Teri Tavera MD Tilt table05/27/2025 3:00 PM EDTOffice Visit [facility] [address] [place] [facility] [address] Teri Tavera MD Palpitations (Primary Dx); SVT (supraventricular tachycardia); LY (dyspnea on exertion); Vertigo; Benign hypertensive heart disease without congestive heart failure; Pure hypercholesterolemia; Class 2 severe obesity due to excess calories with serious comorbidity and body mass index (BMI) of38.0 to 38.9 in adult ([facility]); Sleep apnea, unspecified type; Attention deficit hyperactivity disorder (ADHD), unspecified ADHD type05/20/2025 7:50 AM EDT - 05/20/2025 11:59 PM EDTHospital Encounter [facility] [address] [place] [address] Dizziness; Near syncope Discharge Disposition: Home or Self Care (01)05/20/20258519Grzbvc92/08/2025Results Follow-Up [facility] [address] [place] [address] Teri Tavera MD Complete Echo (TTE) w/wo Imaging Agent, Strain, 3D, Bubble Study04/22/2025Orders Only [facility] [address] [place] [facility] [address] ProviderLuna MD 04/19/2025Telephone [facility] [address] [place] [address] Chuyita Kevin MA from Last 3 Months Family History Medical HistoryRelationNameCommentssubstance abuseFatherHeart diseaseMother HyperlipidemiaMotherObesityMotherThyroid diseaseMotherRelationNameStatusComments FatherUnknownMotherAlive Social History Tobacco UseTypesPacks/DayYears UsedDateSmoking Tobacco: NeverSmokeless Tobacco: Never Tobacco Cessation:Counseling Given: Not Answered Alcohol UseStandard Drinks/WeekCommentsNot Currently0 (1 standard drink = 0.6 oz pure alcohol)CommentsUnknownSex and Gender InformationValueDate Recorded Sex Assigned at PhauhZwilit32/30/2025 9:28 AM EDTLegal QagEwwadd80/03/2025 11:19 AM EDTGender AszekprpLhfxcv01/30/2025 9:28 AM EDTSexual OrientationHeterosexual or Xwhfyqdj89/30/2025 9:28 AM EDT Last Filed Vital Signs Vital SignReadingTime TakenCommentsBlood Qefmeksh568/8611 2:58 PM EST Sssxq9341 2:58 PM ESTTemperature--Respiratory Rate--Oxygen Kgjfpmoegj03% 07/06/2025 2:58 PM ESTInhaled Oxygen Concentration--Dgjliu159 kg (254 lb) 05/27/2025 3:21 PM EOVLarbam488.7 cm (5' 8 )07/06/2025 2:58 PM ESTBody Mass Index38.62005/27/2025 3:21 PM EDT Plan of Treatment Health MaintenanceDue DateLast DoneCommentsDepression Buozmvhcu60/06/2001 Varicella Vaccines (1 of 2 - 13+ 2-dose series)2001Hepatitis B Vaccines (1 of 3 - 19+ 3-dose series)12/07/2007Pap Smear2009dult Jnqmsbx0112/06/2010HPV Vaccines (1 - 3-dose SCDM series)12/07/2015Cervical Cancer Ymttumbie15/06/2019 HPV/Cefvyj2412/06/2018COVID-19 Vaccine ( season)509/, 06/08/2023, 06/30/2022, Additional history [...] W/WO IMAGING AGENT, STRAIN, 3D, BUBBLE STUDY Vfquxae9704/21/2025 8:46 AM EDT from Last 3 Months Results * Tilt table (05/20/2025 9:03 AM EDT)Anatomical RegionLateralityModalityOther Specimen (Source)Anatomical Location / LateralityCollection Method / Volume Collection TimeReceived Time Impressions 05/21/2025 12:48 PM EDT Negative study for Syncope RECOMMENDED FOLLOW UP: Call Primary Care Physician to schedule an appointment Narrative 05/21/2025 12:48 PM EDT A Tilt Table test was performed on 05/21/25 at [facility] METHOD: ??The test was explained to [...] Post Test: asymptomatic. FINAL Authorizing ProviderResult TypeResult StatusA[facility] CARDIAC SERVICES PROCEDURESFinal Result * Complete Echo (TTE) w/wo Imaging Agent, Strain, 3D, Bubble Study (04/21/2025 8:46 AM EDT)Anatomical RegionLateralityModalityUltrasound Narrative Authorizing ProviderResult TypeResult StatusHistorical Provider [facility] [place] ECHO PROCEDURESFinal Result from Last 3 Months Insurance
--- OUTSIDE RECORDS SUMMARY | 2025-07-07 20:52 | XMS_ITS | Encounter Summary ---
Author Organization [facility] Address [address] [place] [address] Care Team Providers Care Director Life Name Role Phone Anna Navarro MD Unavailable [phone] Encounter Details DateTypeDepartmentCare Team (Latest Contact Info)Zxohqarhxxl61/22/2025Travel Social History Tobacco UseTypesPacks/DayYears UsedDateSmoking Tobacco: NeverSmokeless Tobacco: NeverCommentsUnknownSex and Gender InformationValueDate RecordedSex Assigned at BirthNot on fileLegal BzkTyzghw50/01/2023 8:35 PM EDTGender Identity Not on fileSexual OrientationNot on filedocumented as of this encounter Plan of Treatment DateTypeDepartmentCare Team (Latest Contact Info)Swgzeylzehx15/03/2025 2:20 PM ESTOffice Visit [facility] [place] [facility] [address] [place] [phone] Thu Whalen MD [address] [place] [address] documented as of this encounter Visit Diagnoses Not on filedocumented in this encounter Care Teams Team MemberRelationshipSpecialtyStart DateEnd Date Anna Navarro MD [address] [place] [phone] Referring PhysicianFamily Gujcnxxn46/22/25documented as of this encounter
--- OUTSIDE RECORDS SUMMARY | 2025-07-07 20:52 | XMS_ITS | Encounter Summary ---
Author Organization [facility] Address [address] [place] [address] Care Team Providers Care Java Systems Analyst Name Role Phone Anna Navarro MD Unavailable [phone] Encounter Details DateTypeDepartmentCare Team (Latest Contact Info)Qmcxxgarzda21/22/2025amboo flowsheet [facility] [address] [facility] [address] [place] [phone] Thu Whalen MD [address] [facility] [address] [place] [address] Social History Tobacco UseTypesPacks/DayYears UsedDateSmoking Tobacco: NeverSmokeless Tobacco: NeverCommentsUnknownSex and Gender InformationValueDate RecordedSex Assigned at BirthNot on fileLegal AnhHpcfsd65/01/2023 8:35 PM EDTGender Identity Not on fileSexual OrientationNot on filedocumented as of this encounter Plan of Treatment DateTypeDepartmentCare Team (Latest Contact Info)Hzhzzkkfuud77/03/2025 2:20 PM ESTOffice Visit [facility] [address] [facility] [address] [place] [phone] Thu Whalen MD [address] [facility] [address] [place] [address] documented as of this encounter Visit Diagnoses Not on filedocumented in this encounter Care Teams Team MemberRelationshipSpecialtyStart DateEnd Date Anna Navarro MD [address] [facility] [place] [address] Referring PhysicianFamily Kxpdusnm18/22/25documented as of this encounter
--- OUTSIDE RECORDS SUMMARY | 2025-07-07 20:53 | XMS_ITS | Clinical Summary ---
Author Organization [facility] Healthcare Address [address] [place] [address] Care Team Providers Care Compliance Tester Name Role Phone Anna Navarro MD Unavailable [phone] Allergies Active AllergyReactionsCriticalityNoted TnxeRsafbrltNummgqkRsgrtyj91/18/2025 XijcsydafZyyyj97/22/9580VxwhijtstlsTvgwazx88/30/2025 Medications MedicationSigDispense QuantityRefillsLast FilledStart DateEnd DateStatus amphetamine-dextroamphetamine [...] DateBenign hypertensive heart disease without congestive heart mhqetqs1006/03/2025SVT (supraventricular tachycardia)06/03/2025 Attention deficit hyperactivity disorder (ADHD)03/31/2025lass 2 severe obesity due to excess calories with serious comorbidity and body mass index (BMI) of38.0 to 38.9 in adult03/31/2025DOE (dyspnea on exertion)03/31/2025Near syncope 03/31/20251915Dochoypwpdul32/30/2025Pure ntazspyganjwmqgqttgu04/30/2025Sleep apnea 03/31/2025Tinnitus of both ears03/31/20254461Fmpeejz85/30/2025 Encounters DateTypeDepartmentCare MlifRbxbcoqegad33/27/2025Telephone [facility] Otolaryngology [address] [place] [address] Thu Whalen MD 06/23/2025 2:40 PM EDTOffice Visit [facility] [place] [facility] [address] [facility] [address] [place] [address] Thu Whalen MD Dizziness and giddiness (Primary Dx); Pharyngoesophageal khsysnevd11/22/2025amboo flowsheet [facility] [place] [facility] [address] [facility] [address] [place] [address] Thu Whalen MD 06/23/20252542Mhtbhs15/14/2025 2:45 PM EDTOffice Visit [facility] [address] [place] [address] Lidia Luu, AUD Dizziness (Primary Dx)06/15/2025amboo flowsheet [facility] [address] [place] [address] Lidia Luu, AUD from Last 3 Months Social History Tobacco UseTypesPacks/DayYears UsedDateSmoking Tobacco: NeverSmokeless Tobacco: Never Tobacco Cessation:Counseling Given: Not Answered CommentsUnknownSex and Gender InformationValueDate RecordedSex Assigned at BirthNot on fileLegal AvsQokfpq95/01/2023 8:35 PM EDTGender IdentityNot on fileSexual OrientationNot on file Last Filed Vital Signs Vital SignReadingTime TakenCommentsBlood Djpjgkol60/5810 2:38 PM EDT Rbvbp973406/23/2025 2:38 PM EDTTemperature--Respiratory Rate--Oxygen Saturation-- Inhaled Oxygen Concentration--Owukqb884 kg (265 lb)06/23/2025 2:38 PM EDTHeight 172.7 cm (5' 8 )06/23/2025 2:38 PM EDTBody Mass Index40.291 2:38 PM EDT Plan of Treatment DateTypeDepartmentCare Team (Latest Contact Info)Wgnwtvovnpx01/03/2025 2:20 PM ESTOffice Visit [facility] [place] [facility] [address] [facility] [address] [place] [address] Thu Whalen MD [address] [facility] [address] [place] [address] Health MaintenanceDue DateLast DoneCommentsPap Smear2009Cervical Cancer Zmdwwoujg60/06/2019HPV/Hjwpku1412/06/2018COVID-19 Vaccine ( season) /, 07/30/2021, 12/22/2020, Additional history existsInfluenza Vaccine (#1)05/03/2025Pneumococcal Vaccine: Pediatrics (0 to 5 Years) and At- Risk Patients (6 to 64 Years)Aged OutNo longer eligible based on patient's age to complete this topic Procedures Procedure NamePriorityDate/TimeAssociated DiagnosisCommentsAUDITORY FUNCTION WPGUWVpozmku61/14/2025 3:41 PM EDT from Last 3 Months Results * Auditory function tests (06/15/2025 3:41 PM EDT) Narrative Lidia Luu AUD - 06/15/2025 3:41 PM EDT Pure Tone Audiometry Audio indicated normal hearing sensitivity 250-8000 Hz, bilaterally. Hallpike: Yielded negative results in both positions tested. Authorizing ProviderResult TypeResult StatusAllgustabo Luu AUDAUDIOLOGY SERVICES ORDERABLESFinal Result from Last 3 Months Insurance Care Teams Team MemberRelationshipSpecialtyStart DateEnd Date Anna Navarro MD [address] [place] [address] Referring PhysicianFamily Subcelne30/22/25
--- OUTSIDE RECORDS SUMMARY | 2025-07-07 20:53 | XMS_ITS | Encounter Summary ---
Author Organization [facility] Address [address] [place] [address] Care Team Providers Care Advertising Copywriter Name Role Phone Anna Navarro MD Unavailable [phone] Encounter Details DateTypeDepartmentCare Team (Latest Contact Info)Ezbxnnvyqke45/27/2025[facility]phone [facility] [address] [place] [address] Thu Whalen MD [address] [facility] [address] [place] [address] Social History Tobacco UseTypesPacks/DayYears UsedDateSmoking Tobacco: NeverSmokeless Tobacco: NeverCommentsUnknownSex and Gender InformationValueDate RecordedSex Assigned at BirthNot on fileLegal EfnQfswkv31/01/2023 8:35 PM EDTGender Identity Not on fileSexual OrientationNot on filedocumented as of this encounter Miscellaneous Notes * Telephone Encounter - Maricel Maldonado - 06/29/2025 11:59 AM EDT VNG order created, faxed to [facility] at [phone]. Called patient and informed her they will be calling her to schedule, if she does not hear from them within a week to call us. She has follow up scheduled for 08/04/25. * Telephone Encounter - Thu Whalen MD - 06/29/2025 10:47 AM EDT Send referral to [facility] main [place] for a VNG and notify pt * Telephone Encounter - Maricel Maldonado - 06/29/2025 9:57 AM EDT Called [facility] at [phone] they do VNG and take [place] Medicaid insurance.They do not do posturography there. * Telephone Encounter - Thu Whalen MD - 06/28/2025 8:44 AM EDT Pt could not go to [facility] for VNG and posturography. See if [facility] does the test and takes [employer]. If they don't, check [facility], [facility] and [facility] documented in this encounter Plan of Treatment DateTypeDepartmentCare Team (Latest Contact Info)Mllacazrwrk28/03/2025 2:20 PM ESTOffice Visit [facility] [place] [facility] [address] [place] [address] Thu Whalne MD [address] [place] [address] documented as of this encounter Visit Diagnoses Not on filedocumented in this encounter Care Teams Team MemberRelationshipSpecialtyStart DateEnd Date Anna Navarro MD [facility] [place] [address] Referring PhysicianFamily Kopywvhw62/22/25documented as of this encounter
--- OUTSIDE RECORDS SUMMARY | 2025-07-07 20:54 | XMS_ITS | Patient Health Record ---
Author Organization [employer] Address [address] [place] [address] Care Team Providers Care Residential Substance Abuse Counselor Name Role Phone Dr. Kenan Weston Primary Care Provider Reason For Referral No Information Plan Of Treatment No Information Insurance Providers Payer Name Payer Address Payer Phone Subscriber Number Group Number Insured Name Patient Relationship to Insured Coverage Start Date Coverage End Date zDENTAL NATH-termed 22 [address] [place] [address] [id number] Alexsander DAWKNIS - patient is the [id number] 2021[facility] after NATH-termed [address] [place] [id number] REYES - patient is the [id number] 2021
== END 2025-07-07 20:49 | disposition home or self-care (01) ==
PROVIDERS: PCP Nurse Practitioner Family; Visit Provider Internal Medicine Cardiovascular Disease
DX: G47.33 Obstructive sleep apnea (adult) (pediatric) (principal)
CPT/HCPCS: 95810

== ENCOUNTER 2025-07-27 08:46 | Outpatient (OUT) | payer OTHER, SELFPAY ==
--- OUTSIDE RECORDS SUMMARY | 2025-07-27 08:49 | XMS_ITS | Clinical Summary ---
Author Organization [facility] Address [address] [place] [address] Care Team Providers Care Tractor Driver Name Role Phone Unavailable Primary Care Provider Unavailabl e Allergies Active AllergyReactionsCriticalityNoted FhnqZcvjxddmUgtrdeiXtbbdbm71/18/2025 RazavrduaIkeov14/22/2555UkhrymqsvusIriktfg43/30/2025 Medications MedicationSigDispense QuantityRefillsLast FilledStart DateEnd DateStatus amphetamine-dextroamphetamine [...] Benign hypertensive heart disease without congestive heart wiqkxze3706/03/2025 Mnqdsgf6703/31/2025Near djzqkyp7203/31/20256725Aawkrmtwppki67/30/2025DOE (dyspnea on exertion)03/31/2025Pure nabgvybquwzbnblizmbd06/30/2025ttention deficit hyperactivity disorder (ADHD)03/31/2025lass 2 severe obesity due to excess calories with serious comorbidity and body mass index (BMI) of38.0 to 38.9 in adult03/31/2025Sleep apnea03/31/2025Tinnitus of both ears03/31/2025 Encounters DateTypeDepartmentCare HdeoXnxvtfzdsfz01/04/2025 3:00 PM ESTOffice Visit [facility] [address] [facility] [place] [address] Josr Concepcion MD Palpitations (Primary Dx)05/30/2025Results Follow-Up [facility] [address] [facility] [place] [address] Teri Tavera MD Tilt table05/27/2025 3:00 PM EDTOffice Visit [facility] [address] [facility] [place] [address] Teri Tavera MD Palpitations (Primary Dx); SVT (supraventricular tachycardia); LY (dyspnea on exertion); Vertigo; Benign hypertensive heart disease without congestive heart failure; Pure hypercholesterolemia; Class 2 severe obesity due to excess calories with serious comorbidity and body mass index (BMI) of38.0 to 38.9 in adult ([facility]); Sleep apnea, unspecified type; Attention deficit hyperactivity disorder (ADHD), unspecified ADHD type05/20/2025 7:50 AM EDT - 05/20/2025 11:59 PM EDTHospital Encounter [facility] [address] [place] [address] Dizziness; Near syncope Discharge Disposition: Home or Self Care ()05/20/20254322Nhnzmj87/08/2025Results Follow-Up [facility] [address] [place] [address] Teri Tavera MD Complete Echo (TTE) w/wo Imaging Agent, Strain, 3D, Bubble Studyfrom Last 3 Months Family History Medical HistoryRelationNameCommentssubstance abuseFatherHeart diseaseMother HyperlipidemiaMotherObesityMotherThyroid diseaseMotherRelationNameStatusComments FatherUnknownMotherAlive Social History Tobacco UseTypesPacks/DayYears UsedDateSmoking Tobacco: NeverSmokeless Tobacco: Never Tobacco Cessation:Counseling Given: Not Answered Alcohol UseStandard Drinks/WeekCommentsNot Currently0 (1 standard drink = 0.6 oz pure alcohol)CommentsUnknownSex and Gender InformationValueDate Recorded Sex Assigned at RgkmaNxegpw42/30/2025 9:28 AM EDTLegal IvgMumlmx58/03/2025 11:19 AM EDTGender KoxtgowuTdkiei15/30/2025 9:28 AM EDTSexual OrientationHeterosexual or Xskkwdoc04/30/2025 9:28 AM EDT Last Filed Vital Signs Vital SignReadingTime TakenCommentsBlood Wpmtbzjw800/8607/06/2025 2:58 PM EST Ejqjk070307/06/2025 2:58 PM ESTTemperature--Respiratory Rate--Oxygen Qcvtbpxsba85% 07/06/2025 2:58 PM ESTInhaled Oxygen Concentration--Xbqgoo692 kg (254 lb) 05/27/2025 3:21 PM BGEMfdmnk159.7 cm (5' 8 )07/06/2025 2:58 PM ESTBody Mass Index38.62005/27/2025 3:21 PM EDT Plan of Treatment Health MaintenanceDue DateLast DoneCommentsDepression Zdryzwjhp80/06/2001 Varicella Vaccines (1 of 2 - 13+ 2-dose series)2001Hepatitis B Vaccines (1 of 3 - 19+ 3-dose series)12/07/2007Pap Smear2009dult Jvhdure3812/06/2010HPV Vaccines (1 - 3-dose SCDM series)12/07/2015Cervical Cancer Ncazhegbg25/06/2019 HPV/Nczueb0412/06/2018COVID-19 Vaccine ( season)509/, 06/08/2023, 06/30/2022, Additional history [...] 05/20/2025 9:03 AM EDT Dizziness Near syncope from Last 3 Months Results * Tilt table (05/20/2025 9:03 AM EDT)Anatomical RegionLateralityModalityOther Specimen (Source)Anatomical Location / LateralityCollection Method / Volume Collection TimeReceived Time Impressions 05/21/2025 12:48 PM EDT Negative study for Syncope RECOMMENDED FOLLOW UP: Call Primary Care Physician to schedule an appointment Narrative 05/21/2025 12:48 PM EDT A Tilt Table test was performed on 05/21/25 at [facility] METHOD: ??The test was explained to [...] Post Test: asymptomatic. FINAL Authorizing ProviderResult TypeResult StatusSaNational Park Medical Center CARDIAC SERVICES PROCEDURESFinal Result from Last 3 Months Insurance
--- OUTSIDE RECORDS SUMMARY | 2025-07-27 08:49 | XMS_ITS | Clinical Summary ---
Author Organization [facility] Address [address] [place] [address] Care Team Providers Care Vehicle Upholsterer Name Role Phone Thu Whalen MD Unavailable [phone] Encounters DateTypeDepartmentCare UtlsVcmnxbgzkms25/12/2025Orders Only Head and Neck [place] [address] [place], [place] [address] Ashanti Frausto PA Other specified hearing loss, unspecified ear (Primary Dx)07/06/2025Transcribe Orders Referring Physician [address] [place], [place] [address] Thu Whalen MD Tinnitus, unspecified laterality (Primary Dx); Dizzinessfrom Last 3 Months Social History Tobacco UseTypesPacks/DayYears UsedDateSmoking Tobacco: Never Assessed CommentsUnknownSex and Gender InformationValueDate RecordedSex Assigned at Not on fileLegal SpsXkldcz36/04/2025 10:57 AM ESTGender IdentityNot on file Sexual OrientationNot on file Plan of Treatment DateTypeDepartmentCare Team (Latest Contact Info)Rphnkayocfo45/05/2025 7:30 AM ESTOffice Visit Audiology [address] [phone] Teagan Gamble, AUD [address] [place] [address] Tinnitus, dizziness, ENG/VNG.08/06/2025 10:05 AM ESTOffice Visit Otolaryngology [address] [address] Ashanti Frausto PA [address] [place] [address] Tinnitus, dizziness, ENG/VNG.Health MaintenanceDue DateLast DoneCommentsAnxiety Anncjyooa95/06/2007Depression Cqgaowecr81/06/2007HIV Enevybahb77/06/2007 Hepatitis C Bhjhhwslc50/06/2007DTaP,Tdap,Td Vaccine (1 - Tdap)12/07/2007 Hepatitis B Vaccine (1 of 3 - 19+ 3-dose series)12/07/2007Cervical Cancer Afhurxumt95/06/2010HPV Vaccine (1 - 3-dose SCDM series)12/07/2015Covid-19 Vaccine (1 - 2024- season)2025Influenza Vaccine (#1)2025 Insurance Care Teams Team MemberRelationshipSpecialtyStart DateEnd Date Thu Whalen MD [address] [place] [address] ReferringEnt - Nrrzchfgiihzyw17/4/25
--- OUTSIDE RECORDS SUMMARY | 2025-07-27 08:49 | XMS_ITS | Encounter Summary ---
Author Organization [facility] Address [address] [place], [place] [address] Care Team Providers Care Turn Down Attendant Name Role Phone Thu Whalen MD Unavailable Source Comments In the event this information is protected by the Federal Confidentiality of Alcohol and Drug AbusePatient Records regulations: The Federal rules restrict any use of the information to criminally investigate or prosecute any alcohol or drug abuse patient.[facility] Reason for Referral * Consult, Test, Treat (Routine) - AuthorizedSpecialtyDiagnoses / Procedures Referred By ContactReferred To Contact Diagnoses Other specified hearing loss, unspecified ear Procedures HEARING TEST/AUDIOGRAM COMPRE AUDIOMETRY THRESHOLD EVAL SP RECOGNIJ Ashanti Frausto PA [address] [place] [address] Phone: tel: fax: Head and Neck [address] [address] Referral IDStatusReasonStart DateExpiration DateVisits RequestedVisits [id number] Auto-Generated Referral Encounter Details DateTypeDepartmentCare Team (Latest Contact Info)Tnhbdijnrmy44/12/2025Orders Only Head and Neck [address] [address] Ashanti Frausto PA [address] [place] [address] Other specified hearing loss, unspecified ear (Primary Dx) Social History Tobacco UseTypesPacks/DayYears UsedDateSmoking Tobacco: Never Assessed CommentsUnknownSex and Gender InformationValueDate RecordedSex Assigned at Not on fileLegal RlgZznosd73/04/2025 10:57 AM ESTGender IdentityNot on file Sexual OrientationNot on filedocumented as of this encounter Plan of Treatment DateTypeDepartmentCare Team (Latest Contact Info)Eqvwzmficai25/05/2025 7:30 AM ESTOffice Visit Audiology [address] [address] Teagan Gamble, AUD [address] [place], [place] [phone] Tinnitus, dizziness, ENG/VNG.08/06/2025 10:05 AM ESTOffice Visit Otolaryngology [address] [address] Ashanti Frausto PA [address] [place], [place] [address] Tinnitus, dizziness, ENG/VNG.NameTypePriorityAssociated DiagnosesOrder Schedule HEARING TEST/AUDIOGRAMAudiologyRoutine Other specified hearing loss, unspecified ear 1 Occurrences starting 07/14/2025 until 07/15/2026documented as of this encounter Visit Diagnoses Diagnosis Other specified hearing loss, unspecified ear- Primary documented in this encounter Care Teams Team MemberRelationshipSpecialtyStart DateEnd Date Thu Whalen MD [address] [place] [address] ReferringEnt - Yasjlstzcparhn30/4/25documented as of this encounter
--- OUTSIDE RECORDS SUMMARY | 2025-07-27 08:49 | XMS_ITS | Encounter Summary ---
Author Organization [facility] Address [address] [place] [address] Care Team Providers Care Radiology Interventional Physician Name Role Phone Anna Navarro MD Unavailable [phone] Encounter Details DateTypeDepartmentCare Team (Latest Contact Info)Eqgepqwfvos25/27/2025[facility]phone [facility] [address] [place] [address] Thu Whalen MD [address] [facility] [address] [place] [address] Social History Tobacco UseTypesPacks/DayYears UsedDateSmoking Tobacco: NeverSmokeless Tobacco: NeverCommentsUnknownSex and Gender InformationValueDate RecordedSex Assigned at BirthNot on fileLegal PffWajrft70/01/2023 8:35 PM EDTGender Identity Not on fileSexual OrientationNot on filedocumented as of this encounter Miscellaneous Notes * Telephone Encounter - Maricel Maldonado - 07/13/2025 1:43 PM EST Pt called stating she has not heard from [facility] to schedule VNG yet. I called [facility] and spoke with speech/balance and they gave me a different fax number. Re faxed to them and called pt to inform her and let us know the date scheduled , we may need to push out her follow up. [facility] speech/balance direct phone [phone], direct fax # [phone] * Telephone Encounter - Maricel Maldonado - 06/29/2025 11:59 AM EDT VNG order created, faxed to [facility] at [phone]. Called patient and informed her they will be calling her to schedule, if she does not hear from them within a week to call us. She has follow up scheduled for 08/04/25. * Telephone Encounter - Thu Whalen MD - 06/29/2025 10:47 AM EDT Send referral to [facility] for a VNG and notify pt * Telephone Encounter - Maricel Maldonado - 06/29/2025 9:57 AM EDT Called [facility] at [phone] they do VNG and take [place] Medicaid insurance.They do not do posturography there. * Telephone Encounter - Thu Whalen MD - 06/28/2025 8:44 AM EDT Pt could not go to [facility] for VNG and posturography. See if [facility] does the test and takes [place]. If they don't, check [facility], and [facility] documented in this encounter Plan of Treatment DateTypeDepartmentCare Team (Latest Contact Info)Asfafkqouzg89/03/2025 2:20 PM ESTOffice Visit [facility] [place] [facility] [address] [place] [address] Thu Whalen MD [address] [place] [address] documented as of this encounter Visit Diagnoses Not on filedocumented in this encounter Care Teams Team MemberRelationshipSpecialtyStart DateEnd Date Anna Navarro MD [address] [place] [address] Referring PhysicianFamily Mdpgfukx21/22/25documented as of this encounter
--- OUTSIDE RECORDS SUMMARY | 2025-07-27 08:49 | XMS_ITS | Clinical Summary ---
Author Organization [facility] Healthcare Address [address] [place] [address] Care Team Providers Care Satellite Project Site Monitor Name Role Phone Anna Navarro MD Unavailable [phone] Allergies Active AllergyReactionsCriticalityNoted WbfvHctrczqxOcudedoMdpkhlr65/18/2025 PemdzvdsbGezrr87/22/4992BuckesyzdxaYfkfrco56/30/2025 Medications MedicationSigDispense QuantityRefillsLast FilledStart DateEnd DateStatus amphetamine-dextroamphetamine [...] DateBenign hypertensive heart disease without congestive heart cvuvqhx9306/03/2025SVT (supraventricular tachycardia)06/03/2025 Attention deficit hyperactivity disorder (ADHD)03/31/2025lass 2 severe obesity due to excess calories with serious comorbidity and body mass index (BMI) of38.0 to 38.9 in adult03/31/2025DOE (dyspnea on exertion)03/31/2025Near syncope 03/31/20250460Zowweusqobss96/30/2025Pure glryubxndxbdynjedrey48/30/2025Sleep apnea 03/31/2025Tinnitus of both ears03/31/20253036Zoutlvw32/30/2025 Encounters DateTypeDepartmentCare QcblRifvbtwtiqo59/27/2025Telephone [facility] Otolaryngology [address] [place] [address] Thu Whalen MD 06/23/2025 2:40 PM EDTOffice Visit [facility] [place] [facility] [address] [facility] [address] [place] [address] Thu Whalen MD Dizziness and giddiness (Primary Dx); Pharyngoesophageal cvwcjescy67/22/2025amboo flowsheet [facility] [place] [facility] [address] [facility] [address] [place] [address] Thu Whalen MD 06/23/20254234Kyicpd21/14/2025 2:45 PM EDTOffice Visit [facility] [address] [place] [address] Lidia Luu, AUD Dizziness (Primary Dx)06/15/2025amboo flowsheet [facility]toncecile [facility] [address] [place] [address] Lidia Luu, AUD from Last 3 Months Social History Tobacco UseTypesPacks/DayYears UsedDateSmoking Tobacco: NeverSmokeless Tobacco: Never Tobacco Cessation:Counseling Given: Not Answered CommentsUnknownSex and Gender InformationValueDate RecordedSex Assigned at BirthNot on fileLegal ToaGwsaet30/01/2023 8:35 PM EDTGender IdentityNot on fileSexual OrientationNot on file Last Filed Vital Signs Vital SignReadingTime TakenCommentsBlood Djfbinii67/5810 2:38 PM EDT Ipgcp558006/23/2025 2:38 PM EDTTemperature--Respiratory Rate--Oxygen Saturation-- Inhaled Oxygen Concentration--Brbsrs817 kg (265 lb)06/23/2025 2:38 PM EDTHeight 172.7 cm (5' 8 )06/23/2025 2:38 PM EDTBody Mass Index40.291 2:38 PM EDT Plan of Treatment DateTypeDepartmentCare Team (Latest Contact Info)Lpxgfehnhdi53/03/2025 2:20 PM ESTOffice Visit [facility] [place] [facility] [address] [facility] [address] [place] [address] Thu Whalen MD [address] [facility] [address] [place] [address] Health MaintenanceDue DateLast DoneCommentsPap Smear2009Cervical Cancer Qvwkiznme21/06/2019HPV/Vhorzy2612/06/2018COVID-19 Vaccine ( season) /, 07/30/2021, 12/22/2020, Additional history existsInfluenza Vaccine (#1)05/03/2025Pneumococcal Vaccine: Pediatrics (0 to 5 Years) and At- Risk Patients (6 to 64 Years)Aged OutNo longer eligible based on patient's age to complete this topic Procedures Procedure NamePriorityDate/TimeAssociated DiagnosisCommentsAUDITORY FUNCTION EMIOMPzyzhhx33/14/2025 3:41 PM EDT from Last 3 Months [...] MemberRelationshipSpecialtyStart DateEnd Date Anna Navarro MD [address] [place] [address] Referring PhysicianFamily Mvfjergr27/22/25
--- OUTSIDE RECORDS SUMMARY | 2025-07-27 08:50 | XMS_ITS | CCD ---
Author Organization [facility] Care Team Providers Care Heater Worker Name Role Phone Anna Anthony Primary Care Physician Ana Tobin Attending Unavailable Ana Tobin Admitting Unavailable Roger Davis MD Attending Provider Roger Davis Attending Unavailable Roger Davis Admitting Unavailable Ana Tobin Referring Unavailable Ana Tobin Attending Unavailable Ana Tobin Admitting Unavailable Unavailable Primary Care Provider UnavailAnna Smith MD Unavailable [phone] LIDIA LUU Attending Unavailable THU ANDERSEN Attending Unavailable BRE STUART Attending Unavailable BRE STUART Attending Unavailable BRE STUART Referring Unavailable MC HATCH Attending Unavailable Allergies Allergy ClassificationReported Allergen(s)Allergy TypeDate of OnsetReaction(s) Facility (4 sources)Codeine; Translations: [CODEINE]Drug Owtkbjn97-11-2305JiocawmIEHB Healthcare (4 sources)Penicillins; Translations: [PENICILLINS]Propensity to adverse reactions to drug (disorder)61-94-6894EkjxtqjIZKBSelect Medical [facility] (3 sources)Lidocaine; Translations: [LIDOCAINE]Drug Otcselx06-68-5304LzqcsGALZ Healthcare Medications Current Medications MedicationDrug Class(es)DatesSig (Normalized)Sig [...] tablet Take 1 tablet by mouth Daily Movobl73 hr metoprolol succinate 25 mg extended release oral tablet (3 sources)beta-Adrenergic BlockerStart: 08-64-0474kzyd 1 tablet by mouth once dailymetoprolol succinate XL (Toprol-XL) 25 MG 24 hr tablet Take 25 mg by mouth Daily 03/16/2025 Active Problems Active Problems Problem ClassificationProblemDateDocumented DateEpisodic/ChronicAttention- deficit, conduct, and disruptive behavior disorders (3 sources)Attention deficit hyperactivity disorder; Translations: [Attention- deficit hyperactivity disorder, unspecified type]Onset: ChronicCardiac dysrhythmias (3 sources)Supraventricular tachycardia; Translations: [SVT (supraventricular tachycardia)]Onset: 343758-94-2872DrowarkQgkagzy dysrhythmias (5 sources)Palpitations; Translations: [Palpitations]Onset: EpisodicDisorders of lipid metabolism (3 sources)Pure hypercholesterolemia; Translations: [Pure hypercholesterolemia, unspecified]Onset: 043792-96-7222YibjoxxQiituuiikyze with complications and secondary hypertension (5 sources)Benign hypertensive heart disease without congestive heart failure; Translations: [Hypertensive heart disease without heart failure]Onset: 379175-69-4171HohmyeiIyhrs ear and sense organ disorders (3 sources)Bilateral tinnitus; Translations: [Tinnitus, bilateral]Onset: 709526-90-0718GxxfzetqMuewi gastrointestinal disorders (2 sources)Dysphagia; Translations: [Dysphagia, pharyngoesophageal phase] 51-39-6966AnwpqrorEdvgo lower respiratory disease (3 sources)Dyspnea on exertion; Translations: [Other forms of dyspnea]Onset: 827065-64-4356ReqmihwmThrih nutritional; endocrine; and metabolic disorders (3 sources)Severe obesity; Translations: [Class 2 severe obesity due to excess calories with serious comorbidity and body mass index (BMI) of 38.0 to 38.9 in adult]Onset: 582709-57-7232HegfqurEesnqzju codes; unclassified (3 sources)Sleep apnea; Translations: [Sleep apnea, unspecified]Onset: 980042-44-5232IhsyqvvIdaansm (5 sources)Near syncope; Translations: [Syncope and collapse]Onset: 03-31-2025 90-01-0185Wdcneuec Past or Other Problems Problem ClassificationProblemDateDocumented DateEpisodic/ChronicConditions associated with dizziness or vertigo (9 sources)Dizziness; Translations: [Dizziness and giddiness]Onset: 03-31-2025 84-37-0620WhevlidaTvsuw ear and sense organ disorders (2 sources)Tinnitus, bilateral; Translations: [Tinnitus, bilateral]Onset: 35-67-6891ImtbqvhaCkryf lower respiratory disease (2 sources)Other forms of dyspnea; Translations: [Other forms of dyspnea]Onset: 17-09-7007Otfysuxr Results Test NameValueInterpretationReference RangeFacilityOffice Visiton 07-06-2025 Follow-up [id number] Juan Miguel Webber 1990 F Date Provider Department Center 07/06/2025 [facility] Family History Problem Relation Age of Onset Thyroid disease Mother Heart disease Mother Obesity Mother Hyperlipidemia Mother Other Father Family Status - Relation Status Age at Mother Alive Father Unknown Level of Service:11127 MS OFFICE/OUTPATIENT NEW MODERATE MDM 45 MINUTES Reason for Visit and Comments: Follow-up [052166] - Patient is here today for a follow up per Dr. Kruse request.Patient recently wore 30 day montior. Patient denies chest pain, Near syncope [Other] SVT [Other] Hypertension [791274] Hyperlipidemia [182] Palpitations [349911] - Palpation/racing heart has decreased since starting matoprolol Dizziness [] - Dizziness/lightheaded happens frequently with standing/position changes Fatigue [46] - Tired all the timeNormalUniversity of Chi St. [facility] Health [facility] Sugar Land HospitalNo Panel Informationon 30-83-8182Gjdf Tone Audiometry Audio indicated normal hearing sensitivity 250-8000 Hz, bilaterally. Hallpike: Yielded negative results in both positions tested. [facility] HealthcareOffice Visiton 66-87-5604Lrwesa-up [id number] WebberJuan Miguel 1990 F Date Provider Department Center 05/27/2025 BRE HARRISON JOE Al[facility] Family History Problem Relation Age of Onset Thyroid disease Mother Heart disease Mother Obesity Mother Hyperlipidemia Mother Other Father Family Status - Relation Status Age at Mother Alive Father Unknown Level of Service:43281 MS OFFICE/OUTPATIENT ESTABLISHED MOD MDM 30 MIN Reason for Visit and Comments: Follow-up [215875] - Patient is here today for a follow up. Patient recently had Echo, Tilt table, 30 day monitor. Patient states she has been feeling really sweaty, dizziness, Syncope [506] Hyperlipidemia [182] Dizziness [479666] Shortness of Breath [545287] Fatigue [46] Palpitations [240933] - Racing heartNormalUniversity of Chi St. [facility] Hospital Results Follow-Upon 50-57-4694Qcmkwjz Follow-[id number] WebberJuan Miguel 1990 Date Provider Department Center 05/10/2025 BRE HARRISON JOE Reynoldsaresusan Sherman Family History Problem Relation Age of Onset Thyroid disease Mother Heart disease Mother Obesity Mother Hyperlipidemia Mother Other Father Family Status - Relation Status Age at Mother Alive Father UnknownNormalUniversnewark hospital of Chi St[facility] Health [facility] Sugar Land HospitalOrders Onlyon 04-22-2025 Orders [id number] AkbarJuan Miguel 1990 F Date Provider Department Center 04/22/2025 [id number], [facility] JO[facility] Alves Family History Problem Relation Age of Onset Thyroid disease Mother Heart disease Mother Obesity Mother Hyperlipidemia Mother Other Father Family Status - Relation Status Age at Mother Alive Father UnknownNormalUniversnewark hospital of [facility] Hospital36on Regarding serious report on event monitor on 04/03/2025: Samar Liang, MD Chuyita Dorita, MA Can you please check with the patient if she recalls that what she was doing at that time and if she had symptoms. Thank you Spoke with patient. She said she thinks she was either walking into the library at that time, or playing a board game at the library. Currently has 11 more days left to wear event monitor.[facility] CenterOffice Visit on 92-99-7320Suyamg-up [id number] Jaun Miguel Webber 1990 F Date Provider Department Center 03/31/2025 [id number] EVANS CARD [facility] Family History Problem Relation Age of Onset Thyroid disease Mother Heart disease Mother Obesity Mother Hyperlipidemia Mother Other Father Family Status - Relation Status Age at Mother Alive Father Unknown Level of Service:61189 MS OFFICE/OUTPATIENT NEW MODERATE MDM 45 MINUTES Reason for Visit and Comments: Hypertension [589919] New Patient [632]NormalWayne HealthCare Main CampusMA Mamm Diag w/CAD if perf and 3D Bilon 25-93-5597AB Mamm Diag w/CAD if perf and 3D [...] very important to your health. The current [employer] and National Comprehensive Cancer [...] Assessment: BI-RADS Category 1-Negative Recommendation: Normal interval follow-upUniversity Hospitals St. John Medical CenterUS Breast Unilateral Rt Completeon 25-69-5181JB Breast Unilateral Rt CompleteExam Date/Time: 03/10/2025 13:59 EDT Reason for Exam: N64.9 Disorder of breast, unspecified Report PLEASE REFER TO THE MAMMOGRAM REPORT. Ordering Provider: Ana Tobin FINAL REPORT Dictated: 03/10/2025 2:35 pm Lionel Hunter M.D. Signed (Electronic Signature): 03/10/2025 2:35 pm Signed by: Lionel Hunter M.D. Transcribed by: ANAHY Technologist: [facility] Methodist HospitalUrine Cultureon 65-17-4058Cmpyhgph identified Cx Nom (U)ORGANISM: Escherichia coli (O:ESCCOL) [place] Count >100,000 Aerobic DELMAR Charge (NMIC56) SUSCEPTIBILITY [...] RESISTANT TO ALL B-LACTAM DRUGS. PERFORMED BY: [place] [address] PATHOLOGIST PROFESSOR OF MANAGEMENT GIOVANNI CONTRERAS M.D.[facility] Charlotte Physician GroupComment on above: Performed By: #### CUU #### [place] [id number] USAPhysician Orderon 86-04-1606Woectvtqh Order [id number]#1.00[facility] Vital Signs Date TimeVital SignValuePerforming DgmnrgpryLrjyxqhz77-51-7963 14:38-0400Body .7 cmThu Andersen MD Work Phone: [facility] InstituteIktistddqi67-26-5664 14:38-0400Body mass index (BMI) [Ratio]40.29 kg/l4NbgmseThu Andesren MD Work Phone: [facility] InstituteIdjozypewi75-12-0128 14:38-0400Body qautwp195.2 kgThu Andersen MD Work Phone: [phone] Rehabilitation InstituteRxzulfbjle84-92-3720 14:38-0400Diastolic blood mm[Hg]Thu Andersen MD Work Phone: [facility] InstituteLgyskfskcm11-42-3755 14:38-0400Heart rate88 /min Thu Andersen MD Work Phone: [facility] InstituteNoxruuvsbj08-47-9427 14:38-0400Systolic blood zezwrfnq20 mm[Hg]Thu Andersen MD Work Phone: noMS Healthcare Encounters Encounter DateEncounter TypeCare ProviderFacilityStart: 07-06-2025 End: 49-97-2734caalvzwphxUBBKMetroHealth Main Campus Medical Centertart: 06-23-2025 End: 36-85-0828Uetxjx outpatient new 45 minutesThu Andersen MD Work Phone: [facility] [place] OtolaryngologyComment on above:Dizziness and giddiness (Primary Dx); Pharyngoesophageal dysphagiaStart: 06-23-2025 End: 57-36-7116xopmqahotqGUMWSX H TIMMISNot AvailableStart: 06-23-2025 End: 41-90-0852Uojzss [place] Andersen MD Work Phone: [facility] [place] OtolaryngologyStart: 06-23-2025 End: 34-39-1521Zyszjm iMlton Andersen MD Work Phone: [facility] [place] OtolaryngologyStart: 06-15-2025 End: 27-14-3792evirsfmakbOANIMBL S WRIGHTNot AvailableStart: 06-15-2025 End: 11-35-7706Emtnakl encounter procedureLidia Luu AUD Work Phone: noms Josr Carrera AudiologyComment on above: Dizziness (Primary Dx)Start: 06-15-2025 End: 11-52-2466Uyouye Luisa Luu AUD Work Phone: n[facility] Josr Carrera AudiologyStart: 06-15-2025 End: 74-22-5272Kzsxzr Luisa Luu AUD Work Phone: n[facility] Josr Deandre AudiologyStart: 05-27-2025 End: 33-36-5022ihhqbfyjopYECTCCherrington Hospitaltart: 05-20-2025 End: 43-60-3796siqwfqgahaYVXCZSelect Medical [facility] Clinic Rehabilitation Hospital, Edwin Shawtart: 03-31-2025 End: 98-64-8706hxuyrmkuasZLMGGCleveland Clinic South Pointe Hospitaltart: 03-10-2025 End: 88-69-4848qqncjhzmjmTomkai J LampeFacility:FTMCStart: 09-05-2024 End: 14-02-0114nghljcmfiyQnjdmcs M [facility] Work Phone: Start: 09-05-2024 End: 97-74-3911Riytniqe Monty Davis MD Work Phone: [facility] Path Spec [facility] HospStart: 02-20-2024 End: 71-84-4189pneydfiqjtYaeani J LampeFacility:FTMCStart: 02-20-2024 End: 33-75-8835Ixh Drop offAna Tobin [facility] Procedures DateProcedureProcedure DetailPerforming ClinicianStart: 32-45-6928DTETJWMM FUNCTION TESTSLidia ESCAMILLA Work Phone: Plan of Treatment DateCare ActivityDetailAuthorStart: 06-23-2025 End: 10-47-1599Pqbwvhp encounter hjrqibfbo71/22/2025 2:40 PM EDT Office Visit [facility] [address] [place] [phone] Thu Andersen MD [address] [place], [place] [id number] ArrivedNOMS Meaghan OtolaryngologyComment on above:ArrivedStart: 06-18-2025 End: 06-14-1012Ebceurs encounter xfjehvyrb45/17/2025 1:10 PM EDT Office Visit [facility] [address] [place] [address] Thu Andersen MD [address] [facility] [address] [place] [address] SUSAN Iqbal OtolaryngologyStart: 65-04-5496Mraliokvp vaccinationInfluenza Vaccine (#1)[facility] HealthcareStart: 59-20-0694Oflsxalt identified in Urine by CultureUrine [facility] Medical Centertart: 35-18-7967Xqxhc [facility] Start: 73-68-6787Sfpolomxn for malignant neoplasm of cervixNOMS HealthcareStart: 41-95-3583Ieeqecrga for malignant neoplasm of cervixPap SmearNOMS Healthcare Payers DatePayer CategoryPayerPolicy [id number] (Managed Care)[place] ..[id number] [id number] [id number] 2..[id number] [id number] [id number] [id number] Social History DateTypeDetailFacilityTobacco smoking statusSamaritan Hospitaltart: 66-39-7520Ddb Assigned At BirthFeLutheran HospitalTobacc smoking status NHISUnknown if ever smokedNOIN HealthcareStart: 33-65-1057Zko Female (finding)[facility] Hospitaltart: 22-11-9395Low Assigned At BirthFeLutheran Hospitaltart: 43-37-9695Ooy assigned at birthNot on fileSTEWARD HEALTH CARE SYSTEM HealthcareStart: 75-68-1245UqtEequqzEPEA HealthcareStart: 89-12-8134Ulvcxbu smoking status NHISNever smoked tobaccoNOIN HealthcareStart: 80-72-4006Ncrmbxp use and exposureSmokeless tobacco non-userNOMS Healthcare Start: 09-35-1221Xetxtst of Social functionNOIN Healthcare Clinical Notes 03-31-2025 to 07-06-2025 Note Date & XkasVqqmPoxmtexk22-59-1237 NoteUT Electrophysiology Consult Note [facility] Reason for visit: Palpitations HPI: Juan Miguel Webber is a 34 y.o. year old with past medical history of ADHD, anxiety disorder, depression hypertension obesity who had previously seen Dr. Bre Stuart for the above. She had described that her symptoms has been progressively getting worse [...] (5' 8 ) SpO2 98% BMI 38.62 kg/m??? Smoking Status Never BSA 2.35 m??? Meds: Medications Ordered Prior to Encounter[4] ROS: [...] be probably having inappropriate sinus response due (more content not included)... [facility]10-22-2025 History of Present illness Narrative* Thu Andersen [...] appears well-developed, well-nourished and well-groomed, Constitutional comments: Fatuma-Hallpike normal Head and Face Appearance: head appears [...] c/w orthostasis, but I would think the front end loader driver who referred her would have ruled that [...] file prior to visit. documented in this [facility]10-14-2025 History of Present illness Narrative* FRANCINE Sharma - 06/15/2025 2:45 PM EDT History: Patient [...] 1. Dr. Andersen 06-18-2025 documented in this [facility]09-25-[facility] Reason for [...] Glucose 107, BUN 10, (more content not included)...[facility]07-30-20[facility] Reason for [...] EKG Assessment and Pl (more content not included)...[facility] note No data available for this section [facility] HospitalEvaluation noteNo assessment information available [facility] Work Phone: Evaluation note* Diagnosis Dizziness- Primary Dizziness and giddiness documented in this encounter [facility] HealthcareEvaluation note* Diagnosis Dizziness and giddiness- Primary Pharyngoesophageal dysphagia Dysphagia, pharyngoesophageal phase documented in this encounter [facility] HealthcareHospital Discharge instructions No data available for this section [facility] HospitalProgress note No data available for this section [facility] Summary Purpose Family History No Family [...] Date Anna Navarro MD [address] [place] [address] Referring PhysicianHamilton Medical Center06/23/25Team MemberRelationshipSpecialtyStart DateEnd Date Anna Navarro MD [address] [place] [address] Referring PhysicianHigh Point Hospital Mvsfmxmu24/22/25 INFORMATION SOURCE (unrecogn ized section and content) DATE CREATED AUTHOR 02/22/2024 [facility] DATE CREATED AUTHOR AUTHOR'S ORGANIZ ATION 09/12/2024 [facility] DATE CREATED AUTHOR AUTHOR'S ORGANIZ ATION 03/22/2025 [facility] DATE CREATED AUTHOR AUTHOR'S ORGANIZ ATION 06/25/2025 [facility] DATE CREATED AUTHOR AUTHOR'S ORGANIZ ATION 07/11/2025 [facility] Goals (unrecognized section and content) Goals may [...] BE BASED ON THE PRIMARY CLINICAL RECORDS. [facility] [employer] [facility]. provides no warranty or guarantee of the accuracy or completeness of information in this document.
--- NOTE | 2025-07-27 09:37 | FL_ITS ---
[address] [address] Patient Name: JUAN MIGUEL DAWKINS MRN: [id number] date: 1990 Sex: F Assigned Patient Location: [place] Current Patient Location: [place] Accession/Order Number: [id number] Exam Date: 07/27/2025 08:59 Report Date: 07/27/2025 11:34 At the request of: KHUSHI ANDERSEN MD Procedure: FL barium swallow DOUBLE CONTRAST ESOPHAGRAM CLINICAL HISTORY: Pharyngoesophageal Dysphagia COMPARISON: None TECHNIQUE: Double contrast esophagram was performed. 12 images were obtained. 2 minutes and 5 seconds of fluoroscopic time was utilized. FINDINGS: The esophagus appears normal in caliber without stricture, mass or ulcer. No tertiary contractions were noted. No gastroesophageal reflux disease was seen. No hiatal hernia. No aspiration. FL/FL barium swallow IMPRESSION: UNREMARKABLE ESOPHAGRAM. Impression dictated by: Kenan Brown Jr., DTrumanOTruman 07/27/2025 11:34 AM Dictation Location: [place] [address] Electronically authenticated by: [id number] Y Date: 07/27/2025 11:34
--- NOTE | 2025-07-27 09:37 | FL_ITS ---
[address] [address] Patient Name: JUAN MIGUEL DAWKINS MRN: [id number] date: 1990 Sex: F Assigned Patient Location: [place] Current Patient Location: [place] Accession/Order Number: [id number] Exam Date: 07/27/2025 08:59 Report Date: 07/27/2025 11:42 At the request of: KHUSHI ANDERSEN MD Procedure: FL cineradiography DOUBLE CONTRAST ESOPHAGRAM CLINICAL HISTORY: Pharyngoesophageal Dysphagia COMPARISON: None TECHNIQUE: Double contrast esophagram was performed. 12 images were obtained. 2 minutes and 5 seconds of fluoroscopic time was utilized. FINDINGS: The esophagus appears normal in caliber without stricture, mass or ulcer. No tertiary contractions were noted. No gastroesophageal reflux disease was seen. No hiatal hernia. No aspiration. FL/FL cineradiography IMPRESSION: UNREMARKABLE ESOPHAGRAM. Impression dictated by: Kenan Brown Jr. DTrumanOTruman 07/27/2025 11:42 AM Dictation [facility] Electronically authenticated by: [id number] Y Date: 07/27/2025 11:42
== END 2025-07-27 08:47 | disposition home or self-care (01) ==
LOC: FL 08:46
PROVIDERS: Visit Provider Otolaryngology
DX: R13.14 Dysphagia, pharyngoesophageal phase (principal)
CPT/HCPCS: 74220; 76120

== ENCOUNTER 2025-08-18 21:00 | Outpatient (OUT) | payer OTHER, SELFPAY ==
--- OUTSIDE RECORDS SUMMARY | 2025-08-18 21:07 | XMS_ITS | Clinical Summary ---
Author Organization [facility] Address [address] [place] [address] Care Team Providers Care Erp Analyst Name Role Phone Anna Navarro MD Unavailable [phone] Allergies Active AllergyReactionsCriticalityNoted LwmhPqznqgasZjwnotmFehcnuv53/18/2025 MptigzsdcZduxn85/22/0116XcckrnkaqonLyqcdjb90/30/2025 Medications MedicationSigDispense QuantityRefillsLast FilledStart DateEnd DateStatus amphetamine-dextroamphetamine [...] DateBenign hypertensive heart disease without congestive heart rlycuyc9506/03/2025SVT (supraventricular tachycardia)06/03/2025 Attention deficit hyperactivity disorder (ADHD)03/31/2025lass 2 severe obesity due to excess calories with serious comorbidity and body mass index (BMI) of38.0 to 38.9 in adult03/31/2025DOE (dyspnea on exertion)03/31/2025Near syncope 03/31/20257390Lmpurulojhzl61/30/2025Pure iglnnztbmmcfoaagelfs80/30/2025Sleep apnea 03/31/2025Tinnitus of both ears03/31/20257093Wrxznyw16/30/2025 Encounters DateTypeDepartmentCare BmnsDnjlohmtyxc77/25/2025linisync Result Encounter [facility] External Department Unsolicited Khushi Whalen MD 07/27/2025linisync Result Encounter [facility] External Department Unsolicited Khushi Whalen MD 06/28/2025Telephone [facility] [address] [place] [address] Khushi Whalen MD 06/23/2025 2:40 PM EDTOffice Visit [facility] [place] [facility] [address] [facility] [address] [place] [address] Khushi Whalen MD Dizziness and giddiness (Primary Dx); Pharyngoesophageal ddverlvuw19/22/2025amboo flowsheet [facility] [facility] [address] [facility] [address] [place] [address] Khushi Whalen MD 06/23/20257782Sliebd14/14/2025 2:45 PM EDTOffice Visit [facility] [address] [place] [address] Lidia Luu, AUD Dizziness (Primary Dx)06/15/2025amboo flowsheet [facility] [address] [place] [address] Lidia Luu, AUD from Last 3 Months Social History Tobacco UseTypesPacks/DayYears UsedDateSmoking Tobacco: NeverSmokeless Tobacco: Never Tobacco Cessation:Counseling Given: Not Answered CommentsUnknownSex and Gender InformationValueDate RecordedSex Assigned at BirthNot on fileLegal EtdNhplae19/01/2023 8:35 PM EDTGender IdentityNot on fileSexual OrientationNot on file Last Filed Vital Signs Vital SignReadingTime TakenCommentsBlood Bvcxwqdn31/5806/23/2025 2:38 PM EDT Wpwqw404306/23/2025 2:38 PM EDTTemperature--Respiratory Rate--Oxygen Saturation-- Inhaled Oxygen Concentration--Facmgp203 kg (265 lb)06/23/2025 2:38 PM EDTHeight 172.7 cm (5' 8 )06/23/2025 2:38 PM EDTBody Mass Index40.291 2:38 PM EDT Plan of Treatment DateTypeDepartmentCare Team (Latest Contact Info)Ovyryzgeqoh48/29/2025 1:00 PM ESTOffice Visit [facility] [place] [facility] [address] [facility] [address] [place] [address] Khushi Whalen MD [address] [facility] [address] [place] [address] Health MaintenanceDue DateLast DoneCommentsPap Smear2009Cervical Cancer Rdovxrjfk97/06/2019HPV/Whxahf0612/06/2018COVID-19 Vaccine ( season) 5005/30/2024, 06/08/2023, 06/30/2022, Additional history existsInfluenza Vaccine (#1)05/03/2025Pneumococcal Vaccine: Pediatrics (0 to 5 Years) and At- Risk Patients (6 to 64 Years)Aged OutNo longer eligible based on patient's age to complete this topic Procedures Procedure NamePriorityDate/TimeAssociated DiagnosisCommentsXR CINERADIOGRAPHY 07/27/2025 11:42 AM EST [place] MODIFIED BARIUM KCWQPWO5407/27/2025 11:34 AM EST AUDITORY FUNCTION XCWCYEyudlmk27/14/2025 3:41 PM EDT from Last 3 Months Results * XR CINERADIOGRAPHY (07/27/2025 11:42 AM EST)Anatomical RegionLaterality ModalityOtherSpecimen (Source)Anatomical Location / LateralityCollection Method / VolumeCollection TimeReceived Time07/27/2025 11:42 AM EST Narrative 07/27/2025 11:44 AM EST [facility] ?[address] ? [place] [address] ? Fluoroscopy Report ? Signed ? Patient: WEBBER,JUAN MIGUEL L ?MR#: [id number] ?? : 1990 ?Acct:[id number] ?? Age/Sex: 34 / F ?ADM Date: 11/25/25 ?? Loc: [place] ? Attending Dr: Khushi Whalen M.D. ? Ordering Physician: Khushi Whalen M.D. ?? Date of Service: 07/27/25 ?? Procedure(s): FL cineradiography ?? Accession Number(s): [id number] ? cc: Physician,Non-Staff Alize; Khushi Whalen M.D. ? [facility] ? [address] ? [place] [address] ? Patient Name: ?? JUAN MIGUEL WEBBER ? MRN: [facility]:[id number] ? date: 1990 ?Sex: F ?? Assigned Patient Location: [place] ?? Current [place] Location: [place] ?? Accession/Order Number: [id number] ?? Exam Date: 07/27/2025 ??08:59 ?Report Date: 07/27/2025 ??11:42 ? At the request of: ?? KHUSHI ??GANESH ? Procedure: ??FL cineradiography ? DOUBLE CONTRAST ESOPHAGRAM ? CLINICAL HISTORY: Pharyngoesophageal Dysphagia ? COMPARISON: None ? TECHNIQUE: Double contrast esophagram was performed. ? 12 images were obtained. ??2 minutes and 5 seconds of fluoroscopic time was ?? utilized. ? FINDINGS: ? The esophagus appears normal in caliber without stricture, mass or ulcer. ??No ?? tertiary contractions were noted. ??No gastroesophageal reflux disease was ?? seen. ??No hiatal hernia. ??No aspiration. ? FL/FL cineradiography ?? IMPRESSION: ? UNREMARKABLE ESOPHAGRAM. ? Impression dictated by: Sigrid Hay Jr.OTruman ??07/27/2025 11:42 AM ? Dictation Location: RADIO-PC-27 ? Electronically authenticated by: [id number] ??Y ?? Date: 07/27/2025 ??11:42 ? Dictated By: ?Kenan Brown M.D. ? Signed By: ?07/27/25 1144 ? DD/ 1142 ? TD/TT: ? Disability Insurance Hearing Officer: Procedure Note Radiology, Radiologist, MD - 07/27/[address] [address] Fluoroscopy Report Signed Patient: JUAN MIGUEL WEBBER LMR#: [id number] : 1990Acct:[id number] Age/Sex: 34 / FADM Date: 07/27/25 Loc: [place] Attending Dr: Khushi Whalen M.D. Ordering Physician: Khushi Whalen M.D. Date of Service: 07/27/25 Procedure(s): FL cineradiography Accession Number(s): [id number] cc: Physician,Non-Staff Alize; Khushi Whalen M.D. [place] [address] Patient Name: JUAN MIGUEL WEBBER MRN: [id number] date: 1990 Sex: F Assigned Patient Location: [place] Current [place] Location: [place] Accession/Order Number: [id number] Exam Date: 07/27/2025 08:59 Report Date: 07/27/2025 11:42 At the request of: KHUSHI WHALEN MD Procedure: FL cineradiography DOUBLE CONTRAST ESOPHAGRAM CLINICAL HISTORY: Pharyngoesophageal Dysphagia COMPARISON: None TECHNIQUE: Double contrast esophagram was performed. 12 images were obtained. 2 minutes and 5 seconds of fluoroscopic time was utilized. FINDINGS: The esophagus appears normal in caliber without stricture, mass or ulcer.No tertiary contractions were noted. No gastroesophageal reflux disease was seen. No hiatal hernia. No aspiration. FL/FL cineradiography IMPRESSION: UNREMARKABLE ESOPHAGRAM. Impression dictated by: Kenan Brown Jr., D.O. 07/27/2025 11:42 AM Dictation Location: [place] [address] Electronically authenticated by: [id number] Y Date: 1:42 Dictated By: Kenan Brown M.D. Signed By:07/27/25 1144 DD/ 1142 TD/TT: Disability Insurance Hearing Officer: Authorizing ProviderResult TypeResult StatusHilaoz Whalen MDCLINISYNC IMAGING Final Result * [place] MODIFIED BARIUM SWALLOW (07/27/2025 11:34 AM EST)Anatomical Region LateralityModalityRadiographic ImagingSpecimen (Source)Anatomical Location / LateralityCollection Method / VolumeCollection TimeReceived Time07/27/2025 11:34 AM EST Narrative 07/27/2025 11:37 AM EST [facility] ?[address] ? [place] [address] ? Fluoroscopy Report ? Signed ? Patient: WEBBER,JUAN MIGUEL L ?MR#: [id number] ?? : 1990 ?Acct:[id number] ?? Age/Sex: 34 / F ?ADM Date: 11/25/25 ?? Loc: [place] ? Attending Dr: Khushi Whalen M.D. ? Ordering Physician: Khushi Whalen M.D. ?? Date of Service: 07/27/25 ?? Procedure(s): FL barium swallow ?? Accession Number(s): [id number] ? cc: Physician,Non-Staff Alize; Khushi Whalen M.D. ? [facility] ? [address] [facility] ? [place] [address] ? Patient Name: ?? JUAN MIGUEL WEBBER ? MRN: [facility]:[id number] ? date: 1990 ?Sex: F ?? Assigned Patient Location: [place] ?? Current [place] Location: [place] ?? Accession/Order Number: [id number] ?? Exam Date: 07/27/2025 ??08:59 ?Report Date: 07/27/2025 ??11:34 ? At the request of: ?? KHUSHI ??GANESH ? Procedure: ??FL barium swallow ? DOUBLE CONTRAST ESOPHAGRAM ? CLINICAL HISTORY: Pharyngoesophageal Dysphagia ? COMPARISON: None ? TECHNIQUE: Double contrast esophagram was performed. ? 12 images were obtained. ??2 minutes and 5 seconds of fluoroscopic time was ?? utilized. ? FINDINGS: ? The esophagus appears normal in caliber without stricture, mass or ulcer. ??No ?? tertiary contractions were noted. ??No gastroesophageal reflux disease was ?? seen. ??No hiatal hernia. ??No aspiration. ? FL/FL barium swallow ?? IMPRESSION: ? UNREMARKABLE ESOPHAGRAM. ? Impression dictated by: Kenan Brown Jr., D.O. ??07/27/2025 11:34 AM ? Dictation Location: RADIO-PC-27 ? Electronically authenticated by: [id number] ??Y ?? Date: 07/27/2025 ??11:34 ? Dictated By: ?Kenan Brown M.D. ? Signed By: ?07/27/ 1137 ? DD/DT: 07/27/ 1134 ? TD/TT: ? Disability Insurance Hearing Officer: Procedure Note Radiology, Radiologist, - 07/27/2025 [place] [address] Fluoroscopy Report Signed Patient: JUAN MIGUEL WEBBER LMR#: [id number] : 1990Acct:[id number] Age/Sex: 34 / FADM Date: 07/27/25 Loc: [place] Attending Dr: Khushi Whalen M.D. Ordering Physician: Khushi Whalen M.D. Date of Service: 07/27/25 Procedure(s): FL barium swallow Accession Number(s): [id number] cc: Physician,Non-Staff Alize; Khushi Whalen M.D. The [place] [id number] Patient Name: JUAN MIGUEL WEBBER MRN: [id number] date: 1990 Sex: F Assigned Patient Location: [place] Current Patient Location: [place] Accession/Order Number: [id number] Exam Date: 07/27/2025 08:59 Report Date: 07/27/2025 11:34 At the request of: KHUSHI WHALEN MD Procedure: FL barium swallow DOUBLE CONTRAST ESOPHAGRAM CLINICAL HISTORY: Pharyngoesophageal Dysphagia COMPARISON: None TECHNIQUE: Double contrast esophagram was performed. 12 images were obtained. 2 minutes and 5 seconds of fluoroscopic time was utilized. FINDINGS: The esophagus appears normal in caliber without stricture, mass or ulcer.No tertiary contractions were noted. No gastroesophageal reflux disease was seen. No hiatal hernia. No aspiration. FL/FL barium swallow IMPRESSION: UNREMARKABLE ESOPHAGRAM. Impression dictated by: Kenan Brown Jr., D.OTruman 07/27/2025 11:34 AM Dictation Location: [place] [address] Electronically authenticated by: [id number] Y Date: 1:34 Dictated By: Kenan Brown M.D. Signed By:07/27/25 1137 DD/ 1134 TD/TT: Disability Insurance Hearing Officer: Authorizing ProviderResult TypeResult StatusHilaoz Whalen MDIMG XR PROCEDURES Final Result * Auditory function tests (06/15/2025 3:41 PM EDT) Narrative Lidia Luu, AUD - 06/15/2025 3:41 PM EDT Pure Tone Audiometry Audio indicated normal hearing sensitivity 250-8000 Hz, bilaterally. Hallpike: Yielded negative results in both positions tested. Authorizing ProviderResult TypeResult StatusLidia ESCAMILLAAUDIOLOGY SERVICES ORDERABLESFinal Result from Last 3 Months Insurance Care Teams Team MemberRelationshipSpecialtyStart DateEnd Date Anna Navarro MD [address] [facility] [place] [address] Referring PhysicianFamily Uhboxksk89/22/25
--- OUTSIDE RECORDS SUMMARY | 2025-08-18 21:07 | XMS_ITS | Clinical Summary ---
Author Organization [facility] Address [address] [place] [address] Care Team Providers Care Neon Installer Name Role Phone Unavailable Primary Care Provider Unavailabl e Allergies Active AllergyReactionsCriticalityNoted TonlRyrljwdeMzaqlcyArgmeqn23/18/2025 IcoorhxkzEeepr30/22/4645ZrdnpitcwqfWqdrkvi52/30/2025 Medications MedicationSigDispense QuantityRefillsLast FilledStart DateEnd DateStatus amphetamine-dextroamphetamine [...] Benign hypertensive heart disease without congestive heart vwkfkuf2606/03/2025 Felzxln0103/31/2025Near vgdxntv1003/31/20254074Xdccnjancoes74/30/2025DOE (dyspnea on exertion)03/31/2025Pure ryxyledzbyvjszdhnoxc12/30/2025ttention deficit hyperactivity disorder (ADHD)03/31/2025lass 2 severe obesity due to excess calories with serious comorbidity and body mass index (BMI) of38.0 to 38.9 in adult03/31/2025Sleep apnea03/31/2025Tinnitus of both ears03/31/2025 Encounters DateTypeDepartmentCare KmaqFexyfeyqvye54/04/2025 3:00 PM ESTOffice Visit [facility] [address] [place] [facility] [address] Josr Concepcion MD Palpitations (Primary Dx)05/30/2025Results Follow-Up [facility] [address] [place] [address] Teri Tavera MD Tilt table05/27/2025 3:00 PM EDTOffice Visit [facility] [address] [place] [address] Teri Tavera MD Palpitations (Primary Dx); SVT (supraventricular tachycardia); LY (dyspnea on exertion); Vertigo; Benign hypertensive heart disease without congestive heart failure; Pure hypercholesterolemia; Class 2 severe obesity due to excess calories with serious comorbidity and body mass index (BMI) of38.0 to 38.9 in adult ([facility]); Sleep apnea, unspecified type; Attention deficit hyperactivity disorder (ADHD), unspecified ADHD type05/20/2025 7:50 AM EDT - 05/20/2025 11:59 PM EDTHospital Encounter [facility] [address] [place] [address] Dizziness; Near syncope Discharge Disposition: Home or Self Care ()05/20/2025Travelfrom Last 3 Months Family History Medical HistoryRelationNameCommentssubstance abuseFatherHeart diseaseMother HyperlipidemiaMotherObesityMotherThyroid diseaseMotherRelationNameStatusComments FatherUnknownMotherAlive Social History Tobacco UseTypesPacks/DayYears UsedDateSmoking Tobacco: NeverSmokeless Tobacco: Never Tobacco Cessation:Counseling Given: Not Answered Alcohol UseStandard Drinks/WeekCommentsNot Currently0 (1 standard drink = 0.6 oz pure alcohol)CommentsUnknownSex and Gender InformationValueDate Recorded Sex Assigned at GtmviBcvrlx57/30/2025 9:28 AM EDTLegal SkgXenwuj54/03/2025 11:19 AM EDTGender BosbaucgSkwevb66/30/2025 9:28 AM EDTSexual OrientationHeterosexual or Xgblyjde05/30/2025 9:28 AM EDT Last Filed Vital Signs Vital SignReadingTime TakenCommentsBlood Ptsvkgsb972/8611 2:58 PM EST Fqfyz7930 2:58 PM ESTTemperature--Respiratory Rate--Oxygen Eftsyqudyx40% 07/06/2025 2:58 PM ESTInhaled Oxygen Concentration--Jhhrtf286 kg (254 lb) 05/27/2025 3:21 PM UACPyoqzo681.7 cm (5' 8 )07/06/2025 2:58 PM ESTBody Mass Index38.6209 3:21 PM EDT Plan of Treatment DateTypeDepartmentCare Team (Latest Contact Info)Aggifaxorfz33/16/2026 11:20 AM ESTOffice [facility] [address] [place] [address] Teri Tavera MD [address] [place] [address] MS:[address] [place] [address] Health MaintenanceDue DateLast DoneCommentsDepression Yksmpofzh22/06/2001 Varicella Vaccines (1 of 2 - 13+ 2-dose series)2001Hepatitis B Vaccines (1 of 3 - 19+ 3-dose series)12/07/2007Pap Smear2009dult Blbzsnc0912/06/2010HPV Vaccines (1 - 3-dose SCDM series)12/07/2015Cervical Cancer Gvcnzuoin2019 HPV/Clodvx6912/06/2018COVID-19 Vaccine ( season)5005/30/2024, 06/08/2023, 06/30/2022, Additional history existsInfluenza Vaccine (#1) [...] Table test was performed on 05/21/[address] [facility] METHOD: ??The test was explained to [...] Post Test: asymptomatic. FINAL Authorizing ProviderResult TypeResult StatusSachandra Tavera [facility] CARDIAC SERVICES PROCEDURESFinal Result from Last 3 Months Insurance
--- OUTSIDE RECORDS SUMMARY | 2025-08-18 21:07 | XMS_ITS | Encounter Summary ---
Author Organization [facility] Address [address] [place] [address] Care Team Providers Care Master Machinist Name Role Phone Thu Whalen MD Unavailable [phone] Source Comments In the event this information is protected by the Federal Confidentiality of Alcohol and Drug AbusePatient Records regulations: The Federal rules restrict any use of the information to criminally investigate or prosecute any alcohol or drug abuse patient.[facility] Encounter Details DateTypeDepartmentCare Team (Latest Contact Info)Dirubmxeclh52/16/2025Travel Social History Tobacco UseTypesPacks/DayYears UsedDateSmoking Tobacco: Never Assessed CommentsUnknownSex and Gender InformationValueDate RecordedSex Assigned at Not on fileLegal KsfYqppue82/04/2025 10:57 AM ESTGender IdentityNot on file Sexual OrientationNot on filedocumented as of this encounter Plan of Treatment DateTypeDepartmentCare Team (Latest Contact Info)Noipygybpjt08/19/2025 10:30 AM ESTOffice Visit Otolaryngology [address] [place] [address] David Pulliam PA-C [address] [facility] [place], [place] [address] Tinnitus, unspecified laterality [H93.19]documented as of this encounter Visit Diagnoses Not on filedocumented in this encounter Care Teams Team MemberRelationshipSpecialtyStart DateEnd Date Thu Whalen MD [address] [place] [address] ReferringEnt - Hwwpqvdxoqkjay96/4/25documented as of this encounter
--- OUTSIDE RECORDS SUMMARY | 2025-08-18 21:07 | XMS_ITS | Clinical Summary ---
Author Organization [facility] Address [address] [place], [place] [address] Care Team Providers Care Grinder Operator Name Role Phone Thu Whalen MD Unavailable [phone] Encounters DateTypeDepartmentCare MgviNqdvaanalfd48/16/8810Rxjzpl02/12/2025Orders Only [facility] [address] [place] [address] Ashanti Frausto PA Other specified hearing loss, unspecified ear (Primary Dx)07/06/2025Transcribe Orders Referring Physician [address] [place] [address] Thu Whalen MD Tinnitus, unspecified laterality (Primary Dx); Dizzinessfrom Last 3 Months Social History Tobacco UseTypesPacks/DayYears UsedDateSmoking Tobacco: Never Assessed CommentsUnknownSex and Gender InformationValueDate RecordedSex Assigned at Not on fileLegal FogXqflef76/04/2025 10:57 AM ESTGender IdentityNot on file Sexual OrientationNot on file Plan of Treatment DateTypeDepartmentCare Team (Latest Contact Info)Euisxwcvxjs69/19/2025 10:30 AM ESTOffice Visit Otolaryngology [address] [place] [address] [address] [place] [address] David Pulliam PA-C [address] [facility] [address] [place], [place] [id number] Tinnitus, unspecified laterality [H93.19]Health MaintenanceDue DateLast Done CommentsAnxiety Iqgtvuknc40/06/2007Depression Stjvgktnh18/06/2007HIV Screening 2006Hepatitis C Rppwxanwu46/06/2007DTaP,Tdap,Td Vaccine (1 - Tdap) 12/07/2007Hepatitis B Vaccine (1 of 3 - 19+ 3-dose series)12/07/2007Cervical Cancer Syioqiwjy13/06/2010HPV Vaccine (1 - 3-dose SCDM series)12/07/2015Covid-19 Vaccine (1 - 2024- season)2025Influenza Vaccine (#1)2025 Insurance Care Teams Team MemberRelationshipSpecialtyStart DateEnd Date Thu Whalen MD [address] [place] [address] ReferringEnt - Hdcgrmidzubkvw42/4/25
--- OUTSIDE RECORDS SUMMARY | 2025-08-18 21:07 | XMS_ITS | Patient Health Record ---
Author Organization [facility] Address [address] [place] [address] Care Team Providers Care Cement Gun Operator Name Role Phone Dr. Kenan Weston Primary Care Provider [phone] Reason For Referral No Information Plan Of Treatment No Information Insurance Providers Payer Name Payer Address Payer Phone Subscriber Number Group Number Insured Name Patient Relationship to Insured Coverage Start Date Coverage End Date zDENTAL NATH-termed 22 [address] [place] [address] [id number] Alexsander DAWKINS - patient is the [id number] [facility] after NATH-termed [address] [place] [id number] DAWKINS - patient is the [id number] 2021
== END 2025-08-18 21:01 | disposition home or self-care (01) ==
LOC: SLEEP 21:04
PROVIDERS: Visit Provider Internal Medicine Cardiovascular Disease
DX: G47.33 Obstructive sleep apnea (adult) (pediatric) (principal)
CPT/HCPCS: 95811